=== PATIENT | male | born 1965 | race Caucasian/White ===

== ENCOUNTER 2016-03-25 21:13 | Emergency (ER) | payer OTHER ==
[~2016-03-25] VITALS: Ht 172.7 cm; Wt 80.0 kg
[~2016-03-25 21:13] MED LIST: CELE20TA PO; IPRAAER INH; LORA1TAB12 PO; OMEP20TA PO
[2016-03-25 21:20] VITALS: BP 127/85; PULSE 103; RESP 18; O2SAT 94
[2016-03-25 21:35] VITALS: O2SAT 96
--- NOTE | 2016-03-25 21:40 | PD ---
HPI Chief Complaint: respiratory complaint Time Seen by Provider: 21:32 Travel History International Travel<30 days: No Contact w/Intl Traveler<30days: No Traveled to known affect area: No History of Present Illness HPI 50-year-old male presents to the emergency department by EMS transport for evaluation of shortness of breath. Patient was identified to have wheezing and diminished breath sounds consistent with his history of COPD in exacerbation. Patient was given Solu-Medrol 105 mg IV along with 2 albuterol updraft treatments with improvement of symptoms. No report of injury or fall. EMS does report that part of her was attempting to place a CPAP mask and patient was fighting this and responded quickly to supplement oxygen and updraft treatments. Patient here is voicing no concerns or complaints other than shortness of breath prior to arrival to the emergency department. [facility] Past Medical History Narrative Medical Asthma; atrial fibrillation; bipolar/mood disorder; lung mass: status post biopsy negative for neoplasm or mycobacterium after review of multiple pathology reports from [facility] and the [facility]; COPD; alcoholism; hypertension; hepatitis C; alcohol withdrawal seizure; tobaccoism; orthopedic surgery left wrist; lung biopsy; tonsillectomy; nursing notes reviewed Hx Anticoagulant Therapy: No Arthritis: No Asthma: Yes Atrial Fibrillation: Yes Anxiety: Yes Depression: Yes Cancer: Yes (STAGE IV LUNG CA) Cardiac Catheterization: No Cardiovascular Problems: Yes (HTN) High Cholesterol: No Chemotherapy: No Chest Pain: Yes Congestive Heart Failure: No COPD: Yes Diabetes: No Diminished Hearing: No Endocrine: No Gastrointestinal Disorders: Yes (GERD) GERD: Yes Genitourinary: No Hepatitis: Yes (HEP C) Hiatal Hernia: No Hypertension: Yes Immune Disorder: No Implanted Vascular Access Dvce: Yes Neurologic: No Reproductive: No Respiratory: Yes Immunizations Current: Yes Radiation Therapy: No Seizures: Yes (ETOH WITHDRAWAL) Sleep Apnea: No Thyroid Disease: No Ulcer: Yes Past Surgical History Abdominal Surgery: No AICD: No Arteriovenous Shunt: No Body Medical Devices: SCREW IN LEFT WRIST Cardiac Surgery: No Ear Surgery: No Endocrine Surgery: No Eye Surgery: No Genitourinary Surgery: No Gynecologic Surgery: No Insulin Pump: No Joint Replacement: No Neurologic Surgery: No Oral Surgery: No Pacemaker: No Thoracic Surgery: Yes (BIOPSIES OF LT LUNG) Tonsillectomy: Yes Other Surgery: Yes Social History Alcohol Use: Yes ("MAYBE A 4 PACK OF BEER A DAY" ) Tobacco Use: Yes (3/4 PPD) Substance Use: No Allergies-Medications (Allergen,Severity, Reaction): Coded Allergies: Lisinopril (Verified Allergy, Severe, Anaphylaxis, 03/25/16) Penicillin (Verified Adverse Reaction, Severe, WEAKNESS, "KNOCKS ME OUT", 03/25/16) Reported Meds & Prescriptions Reported Meds & Active Scripts Active Combivent Respimat Inh (Ipratropium-Albuterol Inh) 20-100 Skilled Nursing/Act Aero 1 Puff INH QID Medrol Dosepak (Methylprednisolone) 4 Mg Dspk 4 Mg PO DIRECTED Per Pharmacist direction Reported Omeprazole 20 Mg Tab 20 Mg PO DAILY Lorazepam 1 Mg Tab 1 Mg PO HS PRN Combivent Respimat Inh (Ipratropium-Albuterol Inh) 20-100 Skilled Nursing/Act Aero 1 Puff INH QID Celexa (Citalopram Hydrobromide) 20 Mg Tab 20 Mg PO DAILY Review of Systems Except as stated in HPI: all other systems reviewed are Neg General / Constitutional: No: Fever, Chills HENT: No: Congestion Cardiovascular: No: Chest Pain or Discomfort Respiratory: Positive: Shortness of Breath Gastrointestinal: No: Abdominal Pain Genitourinary: No: Flank Pain Musculoskeletal: No: Myalgias, Arthralgias Skin: No Rash Neurologic: No: Weakness Psychiatric: No: Anxiety, Substance Abuse Hematologic/Lymphatic: No: Lymph Node Enlargement Physical Exam Narrative GENERAL: Well-developed well-nourished male in no acute distress no respiratory distress SKIN: Warm and dry. HEAD: Normocephalic. EYES: No scleral icterus. No injection or drainage. NECK: Supple, trachea midline. No JVD or lymphadenopathy. CARDIOVASCULAR: Regular rate and rhythm without murmurs, gallops, or rubs. RESPIRATORY: Breath sounds equal bilaterally. No accessory muscle use. GASTROINTESTINAL: Abdomen soft, non-tender, nondistended. MUSCULOSKELETAL: No cyanosis, or edema. BACK: Nontender without obvious deformity. No CVA tenderness. Data Data Last Documented VS Vital Signs Date Time Temp Pulse Resp B/P Pulse Ox O2 Delivery O2 Flow Rate FiO2 03/25/16 21:50 99 03/25/16 21:20 103 18 127/85 Orders Complete Blood Count With Diff (03/25/16 21:32) Comprehensive Metabolic Panel (03/25/16 21:32) Magnesium (Mg) (03/25/16 21:32) Troponin I (03/25/16 21:32) Urinalysis - C+S If Indicated (03/25/16 21:32) Iv Access Insert/Monitor (03/25/16 21:32) Electrocardiogram (03/25/16 21:32) Ecg Monitoring (03/25/16 21:32) Oximetry (03/25/16 21:32) Oxygen Administration (03/25/16 21:32) Chest, Single Ap (03/25/16 21:32) Sodium Chloride 0.9% Flush (Ns Flush) (03/25/16 21:45) Albuterol-Ipratropium Neb (Duoneb Neb) (03/25/16 21:45) Alcohol (Ethanol) (03/25/16 21:32) Ckmb (Isoenzyme) Profile (03/25/16 21:32) Potassium Chloride (Kcl) (03/25/16 22:15) CKMB (03/25/16 21:40) CKMB% (03/25/16 21:40) Labs Laboratory Tests Test 03/25/16 21:40 White Blood Count 6.5 TH/MM3 Red Blood Count 4.38 MIL/MM3 Hemoglobin 14.4 GM/DL Hematocrit 42.1 % Mean Corpuscular Volume 96.3 FL Mean Corpuscular Hemoglobin 32.9 PG Mean Corpuscular Hemoglobin 34.2 % Concent Red Cell Distribution Width 13.3 % Platelet Count 179 TH/MM3 Mean Platelet Volume 7.5 FL Neutrophils (%) (Auto) 28.1 % Lymphocytes (%) (Auto) 53.8 % Monocytes (%) (Auto) 16.1 % Eosinophils (%) (Auto) 1.0 % Basophils (%) (Auto) 1.0 % Neutrophils # (Auto) 1.8 TH/MM3 Lymphocytes # (Auto) 3.4 TH/MM3 Monocytes # (Auto) 1.1 TH/MM3 Eosinophils # (Auto) 0.1 TH/MM3 Basophils # (Auto) 0.1 TH/MM3 CBC Comment DIFF FINAL Differential Comment Urine Color STRAW Urine Turbidity CLEAR Urine pH 5.5 Urine Specific [place] 1.003 Urine Protein NEG mg/dL Urine Glucose (UA) NEG mg/dL Urine Ketones NEG mg/dL Urine Occult Blood NEG Urine Nitrite NEG Urine Bilirubin NEG Urine Leukocyte Esterase NEG Urine RBC 0-2 /hpf Urine WBC 0-2 /hpf Urine Squamous Epithelial 0-5 /hpf Cells Urine Bacteria NONE /hpf Microscopic Urinalysis Comment CULT NOT INDICATED Sodium Level 144 MEQ/L Potassium Level 3.3 MEQ/L Chloride Level 108 MEQ/L Carbon Dioxide Level 24.9 MEQ/L Anion Gap 11 MEQ/L Blood Urea Nitrogen 6 MG/DL Creatinine 0.92 MG/DL Estimat Glomerular Filtration 87 ML/MIN Rate Random Glucose 99 MG/DL Calcium Level 8.2 MG/DL Magnesium Level 2.3 MG/DL Total Bilirubin 0.3 MG/DL Aspartate Amino Transf 57 U/L (AST/SGOT) Alanine Aminotransferase 38 U/L (ALT/SGPT) Alkaline Phosphatase 64 U/L Total Creatine Kinase 587 U/L Creatine Kinase MB 2.7 NG/ML Creatine Kinase MB % 0.5 % Troponin I LESS THAN 0.02 NG/ML Total Protein 7.0 GM/DL Albumin 3.7 GM/DL Ethyl Alcohol Level 294 MG/DL [facility] Medical Decision Making Medical Screen Exam Complete: Yes Emergency Medical Condition: Yes Medical Record Reviewed: Yes Interpretation(s) EKG: Sinus tachycardia rate [address] elevation or injury pattern change or ectopy noted CXR: nad per Dr Gold Laboratory Tests Test 03/25/16 21:40 White Blood Count 6.5 TH/MM3 Red Blood Count 4.38 MIL/MM3 Hemoglobin 14.4 GM/DL Hematocrit 42.1 % Mean Corpuscular Volume 96.3 FL Mean Corpuscular Hemoglobin 32.9 PG Mean Corpuscular Hemoglobin 34.2 % Concent Red Cell Distribution Width 13.3 % Platelet Count 179 TH/MM3 Mean Platelet Volume 7.5 FL Neutrophils (%) (Auto) 28.1 % Lymphocytes (%) (Auto) 53.8 % Monocytes (%) (Auto) 16.1 % Eosinophils (%) (Auto) 1.0 % Basophils (%) (Auto) 1.0 % Neutrophils # (Auto) 1.8 TH/MM3 Lymphocytes # (Auto) 3.4 TH/MM3 Monocytes # (Auto) 1.1 TH/MM3 Eosinophils # (Auto) 0.1 TH/MM3 Basophils # (Auto) 0.1 TH/MM3 CBC Comment DIFF FINAL Differential Comment Urine Color STRAW Urine Turbidity CLEAR Urine pH 5.5 Urine Specific [place] 1.003 Urine Protein NEG mg/dL Urine Glucose (UA) NEG mg/dL Urine Ketones NEG mg/dL Urine Occult Blood NEG Urine Nitrite NEG Urine Bilirubin NEG Urine Leukocyte Esterase NEG Urine RBC 0-2 /hpf Urine WBC 0-2 /hpf Urine Squamous Epithelial 0-5 /hpf Cells Urine Bacteria NONE /hpf Microscopic Urinalysis Comment CULT NOT INDICATED Sodium Level 144 MEQ/L Potassium Level 3.3 MEQ/L Chloride Level 108 MEQ/L Carbon Dioxide Level 24.9 MEQ/L Anion Gap 11 MEQ/L Blood Urea Nitrogen 6 MG/DL Creatinine 0.92 MG/DL Estimat Glomerular Filtration 87 ML/MIN Rate Random Glucose 99 MG/DL Calcium Level 8.2 MG/DL Magnesium Level 2.3 MG/DL Total Bilirubin 0.3 MG/DL Aspartate Amino Transf 57 U/L (AST/SGOT) Alanine Aminotransferase 38 U/L (ALT/SGPT) Alkaline Phosphatase 64 U/L Total Creatine Kinase 587 U/L Creatine Kinase MB 2.7 NG/ML Creatine Kinase MB % 0.5 % Troponin I LESS THAN 0.02 NG/ML Total Protein 7.0 GM/DL Albumin 3.7 GM/DL Ethyl Alcohol Level 294 MG/DL Differential Diagnosis Dyspnea, exacerbation COPD, pneumonia, PE, ACS, CHF, alcohol intoxication, electrolyte disturbance, arrhythmia, anemia Narrative Course Patient placed on spinner operator IV access obtained specimens collected and sent for resulting patient administered [facility] 2 had artery received albuterol nebulized treatments 2 prior to arrival to the emergency department along with Solu-Medrol 125 mg IV At 10:25 PM patient is clinically improved lung sounds are clear patient is talking animatedly on the telephone and appears to be in no residual respiratory distress. Patient denying any shortness of breath. Patient is identified to have mild hypokalemia. Patient is identified to have elevated serum alcohol of 294 consistent with intoxication however patient is most likely near his baseline as she admits to being an alcoholic. Patient is noted to have mild lymphocytosis by CBC and patient has chronically elevated lymphocyte percent by automated differential. Patient is identified to have an EKG injury pattern change troponin I is less than 0.02 and not elevated however total CK is elevated at 587 this is nonspecific as CK-MB is 2.7 not elevated and CK-MB percent is 0.5% not elevated most likely reflecting skeletal muscle elevation. Patient has called his son to accept responsibility for patient at time of discharge. Diagnosis Primary Impression: COPD (chronic obstructive pulmonary disease) Qualified Code: J44.9 - Chronic obstructive pulmonary disease, unspecified COPD type Additional Impressions: Alcohol dependence with acute alcoholic intoxication Qualified Code: F10.220 - Alcohol dependence with acute alcoholic intoxication , uncomplicated Hypokalemia Increased CPK level Medication refill Tobacco use disorder Referrals: Primary Care Physician call for appointment [facility] day Patient Instructions: General Instructions Additional Instructions: Increase fluid hydration with NON-alcoholic beverages Add potassium containing foods and beverages to dietary intake Use inhaler as prescribed as needed Discontinue tobacco use Complete Medrol dose taper Discontinue alcohol use follow-up with [facility] for outpatient and inpatient detox resources Follow-up with primary care provider Return to the emergency department for any concerns or change in condition Med/Other Pt SpecificInfo: Prescription(s) given Scripts Ipratropium-Albuterol Inh (Combivent Respimat Inh)20-100 Skilled Nursing/Act Aero1 Puff INH QID #1 INHALER Ref 0 Prov:Tina De Paz MD 03/25/16 Methylprednisolone Dosepak (Medrol Dosepak)4 Mg Dspk4 Mg PO DIRECTED #1 DSPK Ref 0 Per Pharmacist direction Prov:Tina De Paz MD 03/25/16 Disposition: 01 DISCHARGE HOME Condition: Stable Tina De Paz MD Mar 25, 2016 21:40
[2016-03-25] MEDS ORDERED: SODIUM CHLORIDE 0.9% FLUSH 5 ML FLUSH IVF PRN (21:45)
[2016-03-25] MEDS: RESP: ALBUTEROL 2.5 MG/IPRATROPIUM 0.5 MG NEB (SCH) INH (21:49)
[2016-03-25 21:50] VITALS: O2SAT 99
[2016-03-25 21:52] LABS: BLOOD, URINE NEG (NEG); GLUCOSE,URINE NEG (NEG); KETONE, URINE NEG (NEG); NITRITE,URINE NEG (NEG); PH, URINE 5.5 (5.0-8.5)
[2016-03-25 21:54] LABS: AUTOMATED NEUTROPHIL # 1.8 TH/MM3 (1.8-7.7); BASOPHIL # 0.1 TH/MM3 (0-0.2); EOSINOPHIL # 0.1 TH/MM3 (0-0.4); HEMATOCRIT 42.1 % (39.0-51.0); HEMO FLAGS DIFF FINAL; LYMPH % 53.8 % (9.0-44.0); LYMPHOCYTE # 3.4 TH/MM3 (1.0-4.8); MEAN CELL VOLUME 96.3 FL (80.0-100.0); MEAN CORPUSCULAR HEMOGLOBIN 32.9 PG (27.0-34.0); MEAN CORPUSCULAR HGB CONC 34.2 % (32.0-36.0); MONO % 16.1 % (0.0-8.0); NEUT % 28.1 % (16.0-70.0); PLATELET COUNT 179 TH/MM3 (150-450); RED BLOOD COUNT 4.38 MIL/MM3 (4.50-5.90); RED CELL DISTRIBUTION WIDTH 13.3 % (11.6-17.2); WHITE BLOOD COUNT 6.5 TH/MM3 (4.0-11.0)
[2016-03-25 21:59] LABS: CHLORIDE 108 MEQ/L (98-107); POTASSIUM 3.3 MEQ/L (3.5-5.1); SODIUM (NA) 144 MEQ/L (136-145)
[2016-03-25 22:01] LABS: RBC, URINE 0-2 /hpf (0-3); SQUAMOUS EPITHELIAL CELL URINE 0-5 /hpf (0-5); URINE COLOR STRAW (YELLW/STRAW); WBC, URINE 0-2 /hpf (0-5)
[2016-03-25 22:02] LABS: COMMENT (UR) CULT NOT INDICATED; CULTURE IF INDICATED CULT NOT INDICATED
[2016-03-25 22:03] LABS: ANION GAP 11 MEQ/L (5-15); BICARBONATE 24.9 MEQ/L (21.0-32.0); BLOOD UREA NITROGEN 6 MG/DL (7-18); MAGNESIUM 2.3 MG/DL (1.5-2.5)
[2016-03-25 22:06] LABS: ALT (GPT) 38 U/L (12-78); AST (GOT) 57 U/L (15-37); GLOMERULAR FILTRATION RATE 87 ML/MIN (>89)
[2016-03-25 22:08] LABS: TOTAL BILIRUBIN ADULT 0.3 MG/DL (0.2-1.0)
[2016-03-25 22:09] LABS: ALKALINE PHOSPHATASE 64 U/L (45-117); CREATINE KINASE 587 U/L (39-308)
--- NOTE | 2016-03-25 22:12 | RADHPO ---
EXAM DATE/TIME: 03/25/2016 21:59 [facility] COMPARISON: CHEST SINGLE AP, December 12, 2015, 18:52. INDICATIONS : Shortness of breath starting today MEDICAL HISTORY : Chronic obstructive pulmonary disease. Carcinoma, lung. SURGICAL HISTORY : None. ENCOUNTER: Initial ACUITY: 1 day PAIN SCORE: 0/10 LOCATION: Bilateral chest FINDINGS: A single view of the chest demonstrates the lungs to be symmetrically aerated without evidence of mas s, infiltrate or effusion. The cardiomediastinal contours are unremarkable. Osseous structures are intact. CONCLUSION: No acute disease. Alexander Gold MD on March 25, 2016 at 22:10 Board Certified Radiologist. This report was verified electronically.
[2016-03-25 22:15] VITALS: BP 117/68; PULSE 100; RESP 20; O2SAT 94
[2016-03-25] MEDS ORDERED: POTASSIUM CHLORIDE 20 MEQ CONTROLLED RELEASE TAB PO ONE (22:15)
[2016-03-25 22:21] LABS: CKMB 2.7 NG/ML (0.5-3.6)
[2016-03-25] MEDS ORDERED: IPRAAER INH (22:35)
[2016-03-25] MEDS ORDERED: MEDR4PAK PO (22:35)
[2016-03-25 23:20] VITALS: BP 119/75
--- NOTE | 2016-03-26 21:04 | EKG ---
Date Performed: 03/25/2016 Time Performed: 21:44:06 PTAGE: 50 years EKG: Sinus tachycardia Normal ECG except for rate PREVIOUS TRACING : 12/12/2015 18.43 DOCTOR: Mumtaz Pelletier Interpretating Date/Time 03/26/2016 21:01:36
== END 2016-03-25 23:24 | disposition home or self-care (01) ==
LOC: PHED 21:13
DX: J44.1 Chronic obstructive pulmonary disease with (acute) exacerbation (principal); F10.220 Alcohol dependence with intoxication, uncomplicated; I48.91 Unspecified atrial fibrillation; F31.9 Bipolar disorder, unspecified; R91.8 Other nonspecific abnormal finding of lung field; B19.20 Unspecified viral hepatitis C without hepatic coma; J45.909 Unspecified asthma, uncomplicated; I10 Essential (primary) hypertension; F17.210 Nicotine dependence, cigarettes, uncomplicated; R00.0 Tachycardia, unspecified; E87.6 Hypokalemia; Y90.8 Blood alcohol level of 240 mg/100 ml or more; R94.4 Abnormal results of kidney function studies
CPT/HCPCS: 71010; 80053; 80320; 81001; 82550; 82552; 83735; 84484; 85025; 93005; 94640; 94664

== ENCOUNTER 2016-04-01 19:37 | Emergency (ER) | payer OTHER ==
[~2016-04-01] VITALS: Ht 182.9 cm; Wt 76.0 kg
[~2016-04-01 19:37] MED LIST changes: +MEDR4PAK PO
[2016-04-01 20:00] VITALS: BP 122/76; PULSE 95; RESP 18; O2SAT 95
[2016-04-01] MEDS ORDERED: ONDANSETRON HCL 4 MG/2 ML VIAL IV ONE (20:00)
[2016-04-01] MEDS ORDERED: methylPREDNISolone SOD SUCC 125 MG/2 ML VIAL IVP ONE (20:00)
[2016-04-01 20:01] VITALS: BP 122/76; PULSE 99; RESP 16; TEMP 98.5; O2SAT 98
--- NOTE | 2016-04-01 20:01 | PD ---
HPI Chief Complaint: Respiratory Symptoms Time Seen by Provider: 19:47 Travel History International Travel<30 days: No Contact w/Intl Traveler<30days: No Traveled to known affect area: No History of Present Illness HPI The patient is a 50-year-old male who is well-known to this emergency department regarding his frequent visits for alcohol abuse. He called the ambulance today because he was short of breath. The patient continues to smoke one half pack a day and he has COPD. He denies any fever. He denies any chest pain. He has a nebulizer machine at home but did not use it today. PFSH Past Medical History Hx Anticoagulant Therapy: No Arthritis: No Asthma: Yes Atrial Fibrillation: Yes Anxiety: Yes Depression: Yes Cancer: No (STAGE IV LUNG CA) Cardiac Catheterization: No Cardiovascular Problems: Yes (HTN) High Cholesterol: No Chemotherapy: No Chest Pain: Yes Congestive Heart Failure: No COPD: Yes Diabetes: No Diminished Hearing: No Endocrine: No Gastrointestinal Disorders: Yes (GERD) GERD: Yes Genitourinary: No Hepatitis: Yes (HEP C) Hiatal Hernia: No Hypertension: Yes Immune Disorder: No Implanted Vascular Access Dvce: Yes Neurologic: No Reproductive: No Respiratory: Yes Immunizations Current: Yes Radiation Therapy: No Seizures: Yes (ETOH WITHDRAWAL) Sleep Apnea: No Thyroid Disease: No Ulcer: Yes Past Surgical History Abdominal Surgery: No AICD: No Arteriovenous Shunt: No Body Medical Devices: SCREW IN LEFT WRIST Cardiac Surgery: No Ear Surgery: No Endocrine Surgery: No Eye Surgery: No Genitourinary Surgery: No Gynecologic Surgery: No Insulin Pump: No Joint Replacement: No Neurologic Surgery: No Oral Surgery: No Pacemaker: No Thoracic Surgery: Yes (BIOPSIES OF LT LUNG) Tonsillectomy: Yes Other Surgery: Yes Social History Alcohol Use: Yes ("MAYBE A 4 PACK OF BEER A DAY" ) Tobacco Use: Yes (3/4 PPD) Substance Use: No Allergies-Medications (Allergen,Severity, Reaction): Coded Allergies: Lisinopril (Verified Allergy, Severe, Anaphylaxis, 04/01/16) Penicillin (Verified Adverse Reaction, Severe, WEAKNESS, "KNOCKS ME OUT", 04/01/16) Reported Meds & Prescriptions Reported Meds & Active Scripts Active Combivent Respimat Inh (Ipratropium-Albuterol Inh) 20-100 Care Home/Act Aero 1 Puff INH QID Medrol Dosepak (Methylprednisolone) 4 Mg Dspk 4 Mg PO DIRECTED Per Pharmacist direction Reported Omeprazole 20 Mg Tab 20 Mg PO DAILY Lorazepam 1 Mg Tab 1 Mg PO HS PRN Combivent Respimat Inh (Ipratropium-Albuterol Inh) 20-100 Care Home/Act Aero 1 Puff INH QID Celexa (Citalopram Hydrobromide) 20 Mg Tab 20 Mg PO DAILY Review of Systems ROS Limitations: Intoxication Except as stated in HPI: all other systems reviewed are Neg Physical Exam Exam Limitations: Intoxication Narrative GENERAL: The patient is alert, oriented 3, alcohol intoxicated appearing and smelling of beer in slight respiratory distress. SKIN: Warm and dry. No needle tracks are seen. HEAD: Atraumatic. Normocephalic. EYES: Pupils equal and round. No scleral icterus. No injection or drainage. ENT: No nasal bleeding or discharge. Mucous membranes pink and moist. NECK: Trachea midline. No JVD. CARDIOVASCULAR: Regular rate and rhythm. No murmur appreciated. RESPIRATORY: No accessory muscle use. The lungs show scattered wheezes bilaterally consistent with his heavy smoking. Breath sounds equal bilaterally. GASTROINTESTINAL: Abdomen soft, non-tender, nondistended. Hepatic and splenic margins not palpable. MUSCULOSKELETAL: No obvious deformities. No clubbing. No cyanosis. No edema. NEUROLOGICAL: Awake and alert. No obvious cranial nerve deficits. Motor grossly within normal limits. Slightly slurred speech consistent with alcohol intoxication. PSYCHIATRIC: The patient appears to have alcohol intoxication and is judgment is fair. He does not appear depressed. Data Data Last Documented VS Vital Signs Date Time Temp Pulse Resp B/P Pulse Ox O2 Delivery O2 Flow Rate FiO2 04/01/16 20:01 98.5 99 16 122/76 98 04/01/16 19:55 Room Air Orders Complete Blood Count With Diff (04/01/16 19:47) Comprehensive Metabolic Panel (04/01/16 19:47) Lipase (04/01/16 19:47) Urinalysis - C+S If Indicated (04/01/16 19:47) Magnesium (Mg) (04/01/16 19:47) Alcohol (Ethanol) (04/01/16 19:47) Drug Screen, Random Urine (04/01/16 19:47) Ondansetron Inj (Zofran Inj) (04/01/16 20:00) Sodium Chlor 0.9% 1000 Ml Inj (Ns 1000 M (04/01/16 20:00) Chest, Pa & Lat (04/01/16 19:55) Methylprednisolone So Succ Inj (Solumedr (04/01/16 20:00) Albuterol-Ipratropium Neb (Duoneb Neb) (04/01/16 20:00) Labs Laboratory Tests Test 04/01/16 04/01/16 19:50 20:00 Urine Collection Type VOIDED Urine Color NONE Urine Turbidity CLEAR Urine pH 5.5 Urine Specific [place] 1.004 Urine Protein NEG mg/dL Urine Glucose (UA) NEG mg/dL Urine Ketones NEG mg/dL Urine Occult Blood NEG Urine Nitrite NEG Urine Bilirubin NEG Urine Leukocyte Esterase NEG Microscopic Urinalysis Comment CULT NOT INDICATED Urine Opiates Screen NEG Urine Barbiturates Screen NEG Urine Amphetamines Screen NEG Urine Benzodiazepines Screen NEG Urine Cocaine Screen NEG Urine Cannabinoids Screen NEG White Blood Count 5.3 TH/MM3 Red Blood Count 4.47 MIL/MM3 Hemoglobin 14.9 GM/DL Hematocrit 42.6 % Mean Corpuscular Volume 95.5 FL Mean Corpuscular Hemoglobin 33.4 PG Mean Corpuscular Hemoglobin 35.0 % Concent Red Cell Distribution Width 13.1 % Platelet Count 148 TH/MM3 Mean Platelet Volume 7.5 FL Neutrophils (%) (Auto) 32.8 % Lymphocytes (%) (Auto) 49.9 % Monocytes (%) (Auto) 14.1 % Eosinophils (%) (Auto) 1.8 % Basophils (%) (Auto) 1.4 % Neutrophils # (Auto) 1.7 TH/MM3 Lymphocytes # (Auto) 2.7 TH/MM3 Monocytes # (Auto) 0.7 TH/MM3 Eosinophils # (Auto) 0.1 TH/MM3 Basophils # (Auto) 0.1 TH/MM3 CBC Comment DIFF FINAL Differential Comment Sodium Level 137 MEQ/L Potassium Level 3.5 MEQ/L Chloride Level 102 MEQ/L Carbon Dioxide Level 23.6 MEQ/L Anion Gap 11 MEQ/L Blood Urea Nitrogen 7 MG/DL Creatinine 0.86 MG/DL Estimat Glomerular Filtration 94 ML/MIN Rate Random Glucose 88 MG/DL Calcium Level 8.7 MG/DL Magnesium Level 2.2 MG/DL Total Bilirubin 0.5 MG/DL Aspartate Amino Transf 42 U/L (AST/SGOT) Alanine Aminotransferase 40 U/L (ALT/SGPT) Alkaline Phosphatase 72 U/L Total Protein 7.1 GM/DL Albumin 3.6 GM/DL Lipase 493 U/L Ethyl Alcohol Level 313 MG/DL [facility] Medical Decision Making Medical Screen Exam Complete: Yes Emergency Medical Condition: Yes Medical Record Reviewed: Yes Interpretation(s) The CBC is essentially normal. The complete metabolic profile shows an AST of 42 but is otherwise normal. Lipase is slightly elevated at 493. The urine toxicology screen is negative for all substances tested in the urine. The alcohol level is 313. The chest x-ray shows no acute cardiopulmonary disease. Differential Diagnosis Alcohol intoxication, alcohol abuse, other substance abuse, COPD with acute exacerbation, bronchitis, pneumonia Narrative Course The patient was given 3 DuoNeb treatments and feels much better and wants to go home. The patient has been walking around the emergency department fairly normally despite his elevated alcohol level. He says he lives down the street and can walk to his house. He is told to discontinue alcohol. Impression, COPD with acute exacerbation, alcohol abuse. Plan: The patient wants an albuterol HFA refill. He will need to discontinue alcohol. Diagnosis Primary Impression: COPD with acute exacerbation Additional Instructions: As we discussed, discontinue alcohol. Your alcohol level was extremely high today. Med/Other Pt SpecificInfo: Prescription(s) given Scripts Albuterol 8.5 GM Inh (Proair Hfa 8.5 GM Inh)90 Mcg/Act Aer2 Puff INH Q4-6H PRN ( SHORTNESS OF BREATH) #1 INHALER Ref 0 108 mcg/actuation Prov:Macho Palafox MD 04/01/16 Disposition: 01 DISCHARGE HOME Condition: Stable Macho Palafox MD Apr 01, 2016 20:01
[2016-04-01] MEDS: RESP: ALBUTEROL 2.5 MG/IPRATROPIUM 0.5 MG NEB (SCH) INH ×2 (20:05→20:08)
[2016-04-01 20:10] LABS: AUTOMATED NEUTROPHIL # 1.7 TH/MM3 (1.8-7.7); BASOPHIL # 0.1 TH/MM3 (0-0.2); BASOPHIL % 1.4 % (0.0-2.0); EOSINOPHIL # 0.1 TH/MM3 (0-0.4); EOSINOPHIL % 1.8 % (0.0-4.0); HEMATOCRIT 42.6 % (39.0-51.0); HEMO FLAGS DIFF FINAL; LYMPH % 49.9 % (9.0-44.0); LYMPHOCYTE # 2.7 TH/MM3 (1.0-4.8); MEAN CELL VOLUME 95.5 FL (80.0-100.0); MEAN CORPUSCULAR HEMOGLOBIN 33.4 PG (27.0-34.0); MONO % 14.1 % (0.0-8.0); NEUT % 32.8 % (16.0-70.0); PLATELET COUNT 148 TH/MM3 (150-450); RED BLOOD COUNT 4.47 MIL/MM3 (4.50-5.90); RED CELL DISTRIBUTION WIDTH 13.1 % (11.6-17.2); WHITE BLOOD COUNT 5.3 TH/MM3 (4.0-11.0)
[2016-04-01 20:13] LABS: BLOOD, URINE NEG (NEG); GLUCOSE,URINE NEG (NEG); KETONE, URINE NEG (NEG); NITRITE,URINE NEG (NEG); PH, URINE 5.5 (5.0-8.5)
[2016-04-01 20:17] LABS: AMPHETAMINE, URINE NEG (NEG); BARBITURATES, URINE NEG (NEG)
[2016-04-01 20:18] LABS: COCAINE, URINE NEG (NEG)
[2016-04-01 20:18] LABS: CHLORIDE 102 MEQ/L (98-107); POTASSIUM 3.5 MEQ/L (3.5-5.1); SODIUM (NA) 137 MEQ/L (136-145)
[2016-04-01] MEDS: SODIUM CHLOR 0.9% 1000 ML INJ 1,000 ML IV SCH ×2 (20:18→21:01)
[2016-04-01 20:23] LABS: ANION GAP 11 MEQ/L (5-15); BICARBONATE 23.6 MEQ/L (21.0-32.0); BLOOD UREA NITROGEN 7 MG/DL (7-18); MAGNESIUM 2.2 MG/DL (1.5-2.5)
[2016-04-01 20:25] LABS: ALT (GPT) 40 U/L (12-78); AST (GOT) 42 U/L (15-37)
[2016-04-01 20:26] LABS: GLOMERULAR FILTRATION RATE 94 ML/MIN (>89)
[2016-04-01 20:27] LABS: TOTAL BILIRUBIN ADULT 0.5 MG/DL (0.2-1.0)
[2016-04-01 20:28] LABS: ALKALINE PHOSPHATASE 72 U/L (45-117)
[2016-04-01 20:35] LABS: COMMENT (UR) CULT NOT INDICATED; CULTURE IF INDICATED CULT NOT INDICATED; METHOD OF COLLECTION VOIDED
[2016-04-01 20:50] VITALS: BP 128/77; PULSE 94; RESP 18; O2SAT 95
--- NOTE | 2016-04-01 20:55 | RADHPO ---
EXAM DATE/TIME: 04/01/2016 20:45 [facility] COMPARISON: CHEST SINGLE AP, March 25, 2016, 21:59. CHEST PA & LAT, September 01, 2015, 21:59. INDICATIONS : Shortness of breath, cough, chest pain for 1 week MEDICAL HISTORY : Chronic obstructive pulmonary disease. Carcinoma, lung. SURGICAL HISTORY : None. ENCOUNTER: Initial ACUITY: 1 week PAIN SCORE: 10/10 LOCATION: Bilateral chest FINDINGS: PA and lateral views of the chest demonstrate the lungs to be symmetrically aerated without evidence of mass, infiltrate or effusion. Stable scarring is again noted in the left upper lobe. The cardiome diastinal contours are unremarkable. Osseous structures are intact. CONCLUSION: No acute disease. Darwin Treadwell MD on April 01, 2016 at 20:52 Board Certified Radiologist. This report was verified electronically.
[2016-04-01] MEDS ORDERED: ALBUAER3 INH (22:31)
[2016-04-01 22:38] VITALS: BP 137/89; PULSE 95; RESP 18
== END 2016-04-01 22:48 | disposition home or self-care (01) ==
LOC: PHED 19:37
DX: J44.9 Chronic obstructive pulmonary disease, unspecified (principal); I48.91 Unspecified atrial fibrillation; F41.8 Other specified anxiety disorders; I10 Essential (primary) hypertension; F10.220 Alcohol dependence with intoxication, uncomplicated; Y90.8 Blood alcohol level of 240 mg/100 ml or more; F17.210 Nicotine dependence, cigarettes, uncomplicated; B19.20 Unspecified viral hepatitis C without hepatic coma; K21.9 Gastro-esophageal reflux disease without esophagitis
CPT/HCPCS: 71020; 80053; 80307; 80320; 81001; 83690; 83735; 85025; 94640; 94664; 96361; 96374; 96375; 99285; J2405; J2930; J7030

== ENCOUNTER 2016-04-29 20:25 | Emergency (ER) | payer OTHER ==
[~2016-04-29] VITALS: Ht 182.9 cm; Wt 75.0 kg
[~2016-04-29 20:25] MED LIST changes: +ALBUAER3 INH
[2016-04-29 20:29] VITALS: BP 139/95; PULSE 90; RESP 22; TEMP 98; O2SAT 99
[2016-04-29] MEDS ORDERED: methylPREDNISolone SOD SUCC 125 MG/2 ML VIAL IVP ONE (20:45)
[2016-04-29] MEDS ORDERED: SODIUM CHLORIDE 0.9% FLUSH 5 ML FLUSH IVF PRN (20:45)
--- NOTE | 2016-04-29 20:45 | PD ---
HPI Chief Complaint: Respiratory Symptoms Time Seen by Provider: 20:37 Travel History International Travel<30 days: No Contact w/Intl Traveler<30days: No Traveled to known affect area: No History of Present Illness HPI The patient is a 50-year-old alcoholic, frequent visitor to this emergency department for alcohol abuse and COPD with acute exacerbation and complains of shortness of breath/wheezing. He denies any fever. He has a nebulizer machine at home and used it about one hour ago. He admits to "drinking only beer" this afternoon. He smokes about one half pack a day. The patient is requesting Dilaudid for his chronic chest pain. His chest pain is sharp and pleuritic. The patient called an ambulance today and states he is out of his nebulizer treatments. PFSH Past Medical History Hx Anticoagulant Therapy: No Arthritis: No Asthma: Yes Atrial Fibrillation: Yes Anxiety: Yes Depression: Yes Cancer: No (STAGE IV LUNG CA) Cardiac Catheterization: No Cardiovascular Problems: Yes (HTN) High Cholesterol: No Chemotherapy: No Chest Pain: Yes Congestive Heart Failure: No COPD: Yes Diabetes: No Diminished Hearing: No Endocrine: No Gastrointestinal Disorders: Yes (GERD) GERD: Yes Genitourinary: No Hepatitis: Yes (HEP C) Hiatal Hernia: No Hypertension: Yes Immune Disorder: No Implanted Vascular Access Dvce: Yes Neurologic: No Reproductive: No Respiratory: Yes (STAGE 4 LUNG CA) Immunizations Current: Yes Radiation Therapy: No Seizures: Yes (ETOH WITHDRAWAL) Sleep Apnea: No Thyroid Disease: No Ulcer: Yes Past Surgical History Abdominal Surgery: No AICD: No Arteriovenous Shunt: No Body Medical Devices: SCREW IN LEFT WRIST Cardiac Surgery: No Ear Surgery: No Endocrine Surgery: No Eye Surgery: No Genitourinary Surgery: No Gynecologic Surgery: No Insulin Pump: No Joint Replacement: No Neurologic Surgery: No Oral Surgery: No Pacemaker: No Thoracic Surgery: Yes (BIOPSIES OF LT LUNG) Tonsillectomy: Yes Other Surgery: Yes Social History Alcohol Use: Yes ("MAYBE A 4 PACK OF BEER A DAY", unspecified amount of beer today (04/01/16)) Tobacco Use: Yes (/ PPD) Substance Use: No Allergies-Medications (Allergen,Severity, Reaction): Coded Allergies: Lisinopril (Verified Allergy, Severe, Anaphylaxis, 04/29/16) Penicillin (Verified Adverse Reaction, Severe, WEAKNESS, "KNOCKS ME OUT", 04/29/16) Reported Meds & Prescriptions Reported Meds & Active Scripts Active Albuterol Neb (Albuterol Sulfate) 2.5 Mg/3 Ml Neb 2.5 Mg NEB QID NEB Proair Hfa 8.5 GM Inh (Albuterol Sulfate) 90 Mcg/Act Aer 2 Puff INH Q4-6H PRN 108 mcg/actuation Proair Hfa 8.5 GM Inh (Albuterol Sulfate) 90 Mcg/Act Aer 2 Puff INH Q4-6H PRN 108 mcg/actuation Reported Omeprazole 20 Mg Tab 20 Mg PO DAILY Lorazepam 1 Mg Tab 1 Mg PO HS PRN Combivent Respimat Inh (Ipratropium-Albuterol Inh) 20-100 Custodial/Act Aero 1 Puff INH QID Celexa (Citalopram Hydrobromide) 20 Mg Tab 20 Mg PO DAILY Review of Systems ROS Limitations: Intoxication Except as stated in HPI: all other systems reviewed are Neg Physical Exam Exam Limitations: Intoxication Narrative GENERAL: The patient is alert, oriented 3 in slight respiratory distress. He does smell of beer. His vital signs show blood pressure 139/95 and respiratory rate of 22 but his oximetry is 99% on room air. When I see the patient is respiratory rate is 18. SKIN: Warm and dry. HEAD: Atraumatic. Normocephalic. EYES: Pupils equal and round. No scleral icterus. No injection or drainage. ENT: No nasal bleeding or discharge. Mucous membranes pink and moist. NECK: Trachea midline. No JVD. CARDIOVASCULAR: Regular rate and rhythm. No murmur appreciated. RESPIRATORY: No accessory muscle use. Scattered wheezes are heard bilaterally in all lung joseph. Breath sounds equal bilaterally. GASTROINTESTINAL: Abdomen soft, non-tender, nondistended. Hepatic and splenic margins not palpable. No guarding or rebound is present. MUSCULOSKELETAL: No obvious deformities. No clubbing. No cyanosis. No edema. NEUROLOGICAL: Awake and alert. No obvious cranial nerve deficits. Motor grossly within normal limits. Normal speech. PSYCHIATRIC: The patient appears slightly alcohol intoxicated, his judgment is fair. Data Data Last Documented VS Vital Signs Date Time Temp Pulse Resp B/P Pulse Ox O2 Delivery O2 Flow Rate FiO2 04/29/16 21:13 98 Aerosol Mask 7 21 04/29/16 20:29 98.0 90 22 139/95 Orders Complete Blood Count With Diff (04/29/16 20:41) Comprehensive Metabolic Panel (04/29/16 20:41) Magnesium (Mg) (04/29/16 20:41) Troponin I (04/29/16 20:41) Influenzae A/B Antigen (04/29/16 20:41) Iv Access Insert/Monitor (04/29/16 20:41) Electrocardiogram (04/29/16 20:41) Ecg Monitoring (04/29/16 20:41) Oximetry (04/29/16 20:41) Oxygen Administration (04/29/16 20:41) Chest, Pa & Lat (04/29/16 20:41) Sodium Chloride 0.9% Flush (Ns Flush) (04/29/16 20:45) Methylprednisolone So Succ Inj (Solumedr (04/29/16 20:45) Albuterol-Ipratropium Neb (Duoneb Neb) (04/29/16 20:45) Alcohol (Ethanol) (04/29/16 20:41) Ckmb (Isoenzyme) Profile (04/29/16 20:55) CKMB (04/29/16 20:55) CKMB% (04/29/16 20:55) Labs Laboratory Tests Test 04/29/16 20:55 White Blood Count 5.6 TH/MM3 Red Blood Count 4.56 MIL/MM3 Hemoglobin 15.1 GM/DL Hematocrit 43.5 % Mean Corpuscular Volume 95.4 FL Mean Corpuscular Hemoglobin 33.0 PG Mean Corpuscular Hemoglobin 34.6 % Concent Red Cell Distribution Width 13.3 % Platelet Count 153 TH/MM3 Mean Platelet Volume 7.7 FL Neutrophils (%) (Auto) 44.0 % Lymphocytes (%) (Auto) 37.3 % Monocytes (%) (Auto) 15.1 % Eosinophils (%) (Auto) 1.4 % Basophils (%) (Auto) 2.2 % Neutrophils # (Auto) 2.5 TH/MM3 Lymphocytes # (Auto) 2.1 TH/MM3 Monocytes # (Auto) 0.8 TH/MM3 Eosinophils # (Auto) 0.1 TH/MM3 Basophils # (Auto) 0.1 TH/MM3 CBC Comment DIFF FINAL Differential Comment Sodium Level 142 MEQ/L Potassium Level 3.8 MEQ/L Chloride Level 104 MEQ/L Carbon Dioxide Level 24.4 MEQ/L Anion Gap 14 MEQ/L Blood Urea Nitrogen 7 MG/DL Creatinine 0.81 MG/DL Estimat Glomerular Filtration 100 ML/MIN Rate Random Glucose 88 MG/DL Calcium Level 8.9 MG/DL Magnesium Level 2.4 MG/DL Total Bilirubin 0.4 MG/DL Aspartate Amino Transf 79 U/L (AST/SGOT) Alanine Aminotransferase 60 U/L (ALT/SGPT) Alkaline Phosphatase 71 U/L Total Creatine Kinase 167 U/L Troponin I LESS THAN 0.02 NG/ML Total Protein 7.3 GM/DL Albumin 3.9 GM/DL Ethyl Alcohol Level 274 MG/DL [facility] Medical Decision Making Medical Screen Exam Complete: Yes Emergency Medical Condition: Yes Medical Record Reviewed: Yes Interpretation(s) Except for an AST of 79, the complete metabolic profile is normal. The cardiac enzymes are normal. The influenza A/B antigen is negative for flu a and flu B antigen. The alcohol level is 274. Differential Diagnosis Alcohol intoxication, alcohol abuse, COPD with acute exacerbation, hypoxemia, pneumonia, bronchitis, out of medicationsnoncompliant to physician follow-up Narrative Course The patient has alcohol abuse and COPD with acute exacerbation. He appears to be drug-seeking as well, he likes Dilaudid. He has chronic chest pain. He is noncompliant and following up with his primary care physician. Diagnosis Primary Impression: AA (alcohol abuse) Additional Impressions: COPD with acute exacerbation Chronic chest wall pain Drug-seeking behavior Additional Instructions: I refilled your nebulizer medications and albuterol HFA. Discontinue alcohol and smoking. Follow up with a primary care physician. Med/Other Pt SpecificInfo: No Change to Meds Scripts Albuterol Neb 2.5 Mg/3 Ml Neb2.5 Mg NEB QID NEB #60 NEBULE Ref 0 Prov:Macho Palafox MD 04/29/16 Albuterol 8.5 GM Inh (Proair Hfa 8.5 GM Inh)90 Mcg/Act Aer2 Puff INH Q4-6H PRN ( SHORTNESS OF BREATH) #1 INHALER Ref 0 108 mcg/actuation Prov:Macho Palafox MD 04/29/16 Disposition: 01 DISCHARGE HOME Condition: Stable Macho Palafox MD Apr 29, 2016 20:45
[2016-04-29] MEDS: RESP: ALBUTEROL 2.5 MG/IPRATROPIUM 0.5 MG NEB (SCH) INH (20:55)
[2016-04-29 20:56] VITALS: O2SAT 98
[2016-04-29 21:13] VITALS: O2SAT 98
[2016-04-29 21:14] LABS: AUTOMATED NEUTROPHIL # 2.5 TH/MM3 (1.8-7.7); BASOPHIL # 0.1 TH/MM3 (0-0.2); BASOPHIL % 2.2 % (0.0-2.0); EOSINOPHIL # 0.1 TH/MM3 (0-0.4); EOSINOPHIL % 1.4 % (0.0-4.0); HEMATOCRIT 43.5 % (39.0-51.0); HEMO FLAGS DIFF FINAL; LYMPH % 37.3 % (9.0-44.0); LYMPHOCYTE # 2.1 TH/MM3 (1.0-4.8); MEAN CELL VOLUME 95.4 FL (80.0-100.0); MEAN CORPUSCULAR HGB CONC 34.6 % (32.0-36.0); MONO % 15.1 % (0.0-8.0); PLATELET COUNT 153 TH/MM3 (150-450); RED BLOOD COUNT 4.56 MIL/MM3 (4.50-5.90); RED CELL DISTRIBUTION WIDTH 13.3 % (11.6-17.2); WHITE BLOOD COUNT 5.6 TH/MM3 (4.0-11.0)
[2016-04-29] MEDS ORDERED: ALBU0.08 NEB (21:18)
[2016-04-29] MEDS ORDERED: ALBUAER3 INH (21:18)
[2016-04-29 21:22] LABS: CHLORIDE 104 MEQ/L (98-107); POTASSIUM 3.8 MEQ/L (3.5-5.1); SODIUM (NA) 142 MEQ/L (136-145)
[2016-04-29 21:25] LABS: ANION GAP 14 MEQ/L (5-15); BICARBONATE 24.4 MEQ/L (21.0-32.0); BLOOD UREA NITROGEN 7 MG/DL (7-18); MAGNESIUM 2.4 MG/DL (1.5-2.5)
[2016-04-29 21:28] LABS: ALT (GPT) 60 U/L (12-78); AST (GOT) 79 U/L (15-37); GLOMERULAR FILTRATION RATE 100 ML/MIN (>89)
[2016-04-29 21:30] LABS: TOTAL BILIRUBIN ADULT 0.4 MG/DL (0.2-1.0)
[2016-04-29 21:31] LABS: ALKALINE PHOSPHATASE 71 U/L (45-117)
[2016-04-29 21:42] LABS: CREATINE KINASE 167 U/L (39-308)
--- NOTE | 2016-04-29 21:48 | RADHPO ---
EXAM DATE/TIME: 04/29/2016 21:20 [facility] COMPARISON: CHEST PA & LAT, April 01, 2016, 20:45. CT PULMONARY ANGIOGRAM, August 20, 2015, 2:56. INDICATIONS : Short of breath. MEDICAL HISTORY : Chronic obstructive pulmonary disease. Carcinoma, lung. SURGICAL HISTORY : None. ENCOUNTER: Initial ACUITY: 1 day PAIN SCORE: 0/10 LOCATION: Bilateral chest FINDINGS: Lobulated masslike opacity of the left upper lobe again noted, not significantly changed. Lungs other alvarado appear clear. No pleural effusion. No pneumothorax. CONCLUSION: No acute process. Lobulated left upper lobe mass again seen. Hemant Tobias MD on April 29, 2016 at 21:46 Board Certified Radiologist. This report was verified electronically.
[2016-04-29 21:54] LABS: CKMB LESS THAN 0.5 NG/ML (0.5-3.6)
[2016-04-29] MEDS ORDERED: PRED50 PO (21:58)
[2016-04-29 22:00] VITALS: BP 109/87; PULSE 96; RESP 18; O2SAT 98
--- NOTE | 2016-04-29 23:20 | EKG ---
Date Performed: 04/29/2016 Time Performed: 20:50:58 PTAGE: 50 years EKG: Sinus rhythm Normal ECG PREVIOUS TRACING : 03/25/2016 21.44 Compared to prior tracing no significant change DOCTOR: Migue Ackerman Interpretating Date/Time 04/29/2016 23:18:56
== END 2016-04-29 22:15 | disposition home or self-care (01) ==
LOC: PHED 20:25
DX: J44.1 Chronic obstructive pulmonary disease with (acute) exacerbation (principal); F10.220 Alcohol dependence with intoxication, uncomplicated; F17.210 Nicotine dependence, cigarettes, uncomplicated; I48.91 Unspecified atrial fibrillation; I10 Essential (primary) hypertension; Y90.8 Blood alcohol level of 240 mg/100 ml or more; Z76.5 Malingerer [conscious simulation]; Z91.14 Patient's other noncompliance with medication regimen; Z91.19 Patient's noncompliance with other medical treatment and regimen
CPT/HCPCS: 71020; 80053; 80320; 82550; 82552; 83735; 84484; 85025; 87804; 93005; 94640; 94664; 96374; 99285; J2930

== ENCOUNTER 2016-05-24 22:09 | Emergency (ER) | payer OTHER ==
[~2016-05-24] VITALS: Ht 182.9 cm; Wt 76.0 kg
[~2016-05-24 22:09] MED LIST changes: +ALBU0.08 NEB; -MEDR4PAK PO; +PRED50 PO
[2016-05-24 22:17] VITALS: BP 137/98; PULSE 90; RESP 16; TEMP 98.6; O2SAT 96
--- NOTE | 2016-05-24 22:52 | PD ---
HPI Chief Complaint: Respiratory Symptoms Time Seen by Provider: 22:46 Travel History International Travel<30 days: No Contact w/Intl Traveler<30days: No Traveled to known affect area: No History of Present Illness HPI The patient is a 50-year-old male alcoholic who frequently comes to the emergency department when he gets alcohol intoxicated. This time his main complaint is wheezing/shortness of breath. He does have a history of COPD and continues to smoke one half pack a day. He has some findings on x-ray in January and his left lung. Apparently none of these lesions are getting larger. PFSH Past Medical History Hx Anticoagulant Therapy: No Arthritis: No Asthma: Yes Atrial Fibrillation: Yes Anxiety: Yes Depression: Yes Cancer: Yes (STAGE IV LUNG CA) Cardiac Catheterization: No Cardiovascular Problems: Yes (HTN) High Cholesterol: No Chemotherapy: No Chest Pain: Yes Congestive Heart Failure: No COPD: Yes Diabetes: No Diminished Hearing: No Endocrine: No Gastrointestinal Disorders: Yes (GERD) GERD: Yes Genitourinary: No Hepatitis: Yes (HEP C) Hiatal Hernia: No Hypertension: Yes Immune Disorder: No Implanted Vascular Access Dvce: Yes Medical other: No Neurologic: No Reproductive: No Respiratory: Yes (STAGE 4 LUNG CA) Immunizations Current: Yes Radiation Therapy: No Seizures: Yes (ETOH WITHDRAWAL) Sleep Apnea: No Thyroid Disease: No Ulcer: Yes ?: Not Past Surgical History Abdominal Surgery: No AICD: No Arteriovenous Shunt: No Body Medical Devices: SCREW IN LEFT WRIST Cardiac Surgery: No Ear Surgery: No Endocrine Surgery: No Eye Surgery: No Genitourinary Surgery: No Gynecologic Surgery: No Insulin Pump: No Joint Replacement: No Neurologic Surgery: No Oral Surgery: No Pacemaker: No Thoracic Surgery: Yes (BIOPSIES OF LT LUNG) Tonsillectomy: Yes Other Surgery: Yes Social History Alcohol Use: Yes ("MAYBE A 4 PACK OF BEER A DAY", unspecified amount of beer today (04/01/16)) Tobacco Use: Yes (3/4 PPD) Substance Use: No Allergies-Medications (Allergen,Severity, Reaction): Coded Allergies: Lisinopril (Verified Allergy, Severe, Anaphylaxis, 04/29/16) Penicillin (Verified Adverse Reaction, Severe, WEAKNESS, "KNOCKS ME OUT", 04/29/16) Reported Meds & Prescriptions Reported Meds & Active Scripts Active Albuterol Neb (Albuterol Sulfate) 2.5 Mg/3 Ml Neb 2.5 Mg NEB QID NEB Proair Hfa 8.5 GM Inh (Albuterol Sulfate) 90 Mcg/Act Aer 2 Puff INH Q4-6H PRN 108 mcg/actuation Reported Combivent Respimat Inh (Ipratropium-Albuterol Inh) 20-[address] Half-[address]/Act Aero 1 Puff INH QID Review of Systems Except as stated in HPI: all other systems reviewed are Neg Physical Exam Narrative GENERAL: The patient is alert, oriented 3 and smells strongly of beer. He answers questions quickly and appropriately. His vital signs show blood pressure 137/98 but are otherwise normal. SKIN: Warm and dry. HEAD: Atraumatic. Normocephalic. EYES: Pupils equal and round. No scleral icterus. No injection or drainage. ENT: No nasal bleeding or discharge. Mucous membranes pink and moist. NECK: Trachea midline. No JVD. CARDIOVASCULAR: Regular rate and rhythm. No murmur appreciated. RESPIRATORY: No accessory muscle use. Widely Scattered wheezes are heard in both lungs consistent with his heavy smoking. Breath sounds equal bilaterally. GASTROINTESTINAL: Abdomen soft, non-tender, nondistended. Hepatic and splenic margins not palpable. MUSCULOSKELETAL: No obvious deformities. No clubbing. No cyanosis. No edema. NEUROLOGICAL: Awake and alert. No obvious cranial nerve deficits. Motor grossly within normal limits. Normal speech. PSYCHIATRIC: Appropriate mood and affect; insight and judgment normal. Data Data Last Documented VS Vital Signs Date Time Temp Pulse Resp B/P Pulse Ox O2 Delivery O2 Flow Rate FiO2 05/24/16 22:33 18 96 Room Air 05/24/16 22:17 98.6 90 137/98 Orders Complete Blood Count With Diff (05/24/16 22:46) Comprehensive Metabolic Panel (05/24/16 22:46) Chest, Pa & Lat (05/24/16 22:46) Blood Glucose (05/24/16 22:46) Ecg Monitoring (05/24/16 22:46) Iv Access Insert/Monitor (05/24/16 22:46) Oximetry (05/24/16 22:46) Sodium Chloride 0.9% Flush (Ns Flush) (05/24/16 23:00) Alcohol (Ethanol) (05/24/16 22:46) Albuterol-Ipratropium Neb (Duoneb Neb) (05/24/16 23:00) Labs Laboratory Tests Test 05/24/16 23:20 White Blood Count 6.1 TH/MM3 Red Blood Count 4.28 MIL/MM3 Hemoglobin 14.3 GM/DL Hematocrit 41.0 % Mean Corpuscular Volume 95.9 FL Mean Corpuscular Hemoglobin 33.5 PG Mean Corpuscular Hemoglobin 34.9 % Concent Red Cell Distribution Width 13.5 % Platelet Count 173 TH/MM3 Mean Platelet Volume 7.8 FL Neutrophils (%) (Auto) 43.9 % Lymphocytes (%) (Auto) 38.3 % Monocytes (%) (Auto) 14.3 % Eosinophils (%) (Auto) 1.4 % Basophils (%) (Auto) 2.1 % Neutrophils # (Auto) 2.7 TH/MM3 Lymphocytes # (Auto) 2.3 TH/MM3 Monocytes # (Auto) 0.9 TH/MM3 Eosinophils # (Auto) 0.1 TH/MM3 Basophils # (Auto) 0.1 TH/MM3 CBC Comment DIFF FINAL Differential Comment Sodium Level 145 MEQ/L Potassium Level 4.0 MEQ/L Chloride Level 107 MEQ/L Carbon Dioxide Level 25.8 MEQ/L Anion Gap 12 MEQ/L Blood Urea Nitrogen 8 MG/DL Creatinine 0.79 MG/DL Estimat Glomerular Filtration 103 ML/MIN Rate Random Glucose 88 MG/DL Calcium Level 9.0 MG/DL Total Bilirubin 0.3 MG/DL Aspartate Amino Transf 51 U/L (AST/SGOT) Alanine Aminotransferase 53 U/L (ALT/SGPT) Alkaline Phosphatase 68 U/L Total Protein 7.4 GM/DL Albumin 3.9 GM/DL Ethyl Alcohol Level 216 MG/DL [facility] Medical Decision Making Medical Screen Exam Complete: Yes Emergency Medical Condition: Yes Medical Record Reviewed: Yes Interpretation(s) The CBC is normal. The alcohol level is 216. The complete metabolic profile shows an AST of 51 but is otherwise normal. The chest x-ray shows no acute disease. Differential Diagnosis COPD with acute exacerbation, alcohol abuse, tobacco abuse, electrolyte disorder , hepatic encephalopathyunlikely, alcoholic hepatitis, anemia Narrative Course The patient appears to have COPD with acute exacerbation. It is now 12 midnight and the patient is walking around normally and wants to go home. He says he feels much better and wants to go home. His alcohol level is 216, he has had much higher alcohol levels before and he functions well at this level. Diagnosis Primary Impression: COPD with acute exacerbation Additional Impression: Alcohol abuse Additional Instructions: Discontinue alcohol and smoking. Use [facility] if you need help discontinuing alcohol. Med/Other Pt SpecificInfo: No Change to Meds Disposition: 01 DISCHARGE HOME Condition: Stable Macho Palafox MD May 24, 2016 22:52
[2016-05-24] MEDS ORDERED: SODIUM CHLORIDE 0.9% FLUSH 5 ML FLUSH IVF PRN (23:00)
[2016-05-24] MEDS: RESP: ALBUTEROL 2.5 MG/IPRATROPIUM 0.5 MG NEB (SCH) INH ×3 (23:20→23:35)
--- NOTE | 2016-05-24 23:23 | RADHPO ---
EXAM DATE/TIME: 05/24/2016 23:01 [facility] COMPARISON: CHEST PA & LAT, April 29, 2016, 21:20. INDICATIONS : Short of breath. MEDICAL HISTORY : Chronic obstructive pulmonary disease. Carcinoma, lung. asthma. SURGICAL HISTORY : None. ENCOUNTER: Initial ACUITY: 2 days PAIN SCORE: 0/10 LOCATION: Bilateral chest FINDINGS: PA and lateral views of the chest demonstrate the lungs to be symmetrically aerated without evidence of mass, infiltrate or effusion. The cardiomediastinal contours are unremarkable. Osseous structure s are intact. CONCLUSION: No acute disease. Alban Duong MD on May 24, 2016 at 23:22 Board Certified Radiologist. This report was verified electronically.
[2016-05-24 23:32] LABS: AUTOMATED NEUTROPHIL # 2.7 TH/MM3 (1.8-7.7); BASOPHIL # 0.1 TH/MM3 (0-0.2); BASOPHIL % 2.1 % (0.0-2.0); EOSINOPHIL # 0.1 TH/MM3 (0-0.4); EOSINOPHIL % 1.4 % (0.0-4.0); HEMO FLAGS DIFF FINAL; LYMPH % 38.3 % (9.0-44.0); LYMPHOCYTE # 2.3 TH/MM3 (1.0-4.8); MEAN CELL VOLUME 95.9 FL (80.0-100.0); MEAN CORPUSCULAR HEMOGLOBIN 33.5 PG (27.0-34.0); MEAN CORPUSCULAR HGB CONC 34.9 % (32.0-36.0); MONO % 14.3 % (0.0-8.0); NEUT % 43.9 % (16.0-70.0); PLATELET COUNT 173 TH/MM3 (150-450); RED BLOOD COUNT 4.28 MIL/MM3 (4.50-5.90); RED CELL DISTRIBUTION WIDTH 13.5 % (11.6-17.2); WHITE BLOOD COUNT 6.1 TH/MM3 (4.0-11.0)
[2016-05-24 23:45] LABS: CHLORIDE 107 MEQ/L (98-107); SODIUM (NA) 145 MEQ/L (136-145)
[2016-05-24 23:49] LABS: ANION GAP 12 MEQ/L (5-15); BICARBONATE 25.8 MEQ/L (21.0-32.0); BLOOD UREA NITROGEN 8 MG/DL (7-18)
[2016-05-24 23:52] LABS: ALT (GPT) 53 U/L (12-78); AST (GOT) 51 U/L (15-37); GLOMERULAR FILTRATION RATE 103 ML/MIN (>89)
[2016-05-24 23:53] LABS: TOTAL BILIRUBIN ADULT 0.3 MG/DL (0.2-1.0)
[2016-05-24 23:54] LABS: ALKALINE PHOSPHATASE 68 U/L (45-117)
[2016-05-25 00:24] VITALS: BP 137/82
== END 2016-05-25 00:28 | disposition home or self-care (01) ==
LOC: PHED 22:09
DX: J44.1 Chronic obstructive pulmonary disease with (acute) exacerbation (principal); F10.10 Alcohol abuse, uncomplicated; C34.90 Malignant neoplasm of unspecified part of unspecified bronchus or lung; I48.91 Unspecified atrial fibrillation; I10 Essential (primary) hypertension; F17.200 Nicotine dependence, unspecified, uncomplicated; Z87.09 Personal history of other diseases of the respiratory system; Z87.19 Personal history of other diseases of the digestive system; Z86.69 Personal history of other diseases of the nervous system and sense organs; Z86.59 Personal history of other mental and behavioral disorders
CPT/HCPCS: 71020; 80053; 80307; 85025; 94640; 94664; 99285

== ENCOUNTER 2016-05-31 23:48 | Emergency (ER) | payer OTHER ==
[~2016-05-31] VITALS: Ht 182.9 cm; Wt 75.9 kg
[~2016-05-31 23:48] MED LIST changes: -CELE20TA PO; -LORA1TAB12 PO; -OMEP20TA PO; -PRED50 PO
[2016-05-31 23:54] VITALS: BP 135/95; PULSE 95; TEMP 97.3; O2SAT 98
[2016-06-01] MEDS ORDERED: SODIUM CHLORIDE 0.9% FLUSH 10 ML FLUSH IVF PRN (00:30)
--- NOTE | 2016-06-01 00:31 | PD ---
HPI Chief Complaint: Respiratory Distress Time Seen by Provider: 00:28 Travel History International Travel<30 days: No Contact w/Intl Traveler<30days: No Traveled to known affect area: No History of Present Illness HPI 50-year-old male presents to the emergency department by EMS transport for complaint of 2 hours of shortness of breath. Patient has COPD. Patient does not report any other concerns or complaints at this time. Admits to drinking alcohol. No report of fever or productive cough, no hemoptysis or pleuritic pain, no chest pain, abdominal pain, injury or fall. Unable to identify exacerbating or alleviating factors. Patient is frequently seen in the emergency department for same complaint of heavy alcohol consumption and dyspnea related to his history of COPD. PFSH Past Medical History Narrative Medical COPD tobacco use abnormal chest x-ray; tobacco use alcohol use and: Nursing notes reviewed Hx Anticoagulant Therapy: No Arthritis: No Asthma: Yes Atrial Fibrillation: Yes Anxiety: Yes Depression: Yes Cancer: Yes (STAGE IV LUNG CA) Cardiac Catheterization: No Cardiovascular Problems: Yes (HTN) High Cholesterol: No Chemotherapy: No Chest Pain: Yes Congestive Heart Failure: No COPD: Yes Diabetes: No Diminished Hearing: No Endocrine: No Gastrointestinal Disorders: Yes (GERD) GERD: Yes Genitourinary: No Hepatitis: Yes (HEP C) Hiatal Hernia: No Hypertension: Yes Immune Disorder: No Implanted Vascular Access Dvce: Yes Neurologic: No Reproductive: No Respiratory: Yes (STAGE 4 LUNG CA) Immunizations Current: Yes Radiation Therapy: No Seizures: Yes (ETOH WITHDRAWAL) Sleep Apnea: No Thyroid Disease: No Ulcer: Yes Past Surgical History Abdominal Surgery: No AICD: No Arteriovenous Shunt: No Body Medical Devices: SCREW IN LEFT WRIST Cardiac Surgery: No Ear Surgery: No Endocrine Surgery: No Eye Surgery: No Genitourinary Surgery: No Gynecologic Surgery: No Insulin Pump: No Joint Replacement: No Neurologic Surgery: No Oral Surgery: No Pacemaker: No Thoracic Surgery: Yes (BIOPSIES OF LT LUNG) Tonsillectomy: Yes Other Surgery: Yes Social History Alcohol Use: Yes ("MAYBE A 4 PACK OF BEER A DAY", unspecified amount of beer today (04/01/16)) Tobacco Use: Yes (05/09 PPD) Substance Use: No Allergies-Medications (Allergen,Severity, Reaction): Coded Allergies: Lisinopril (Verified Allergy, Severe, Anaphylaxis, 06/01/16) Penicillin (Verified Adverse Reaction, Severe, WEAKNESS, "KNOCKS ME OUT", 06/01/16) Reported Meds & Prescriptions Reported Meds & Active Scripts Active Albuterol Neb (Albuterol Sulfate) 2.5 Mg/3 Ml Neb 2.5 Mg NEB QID NEB Proair Hfa 8.5 GM Inh (Albuterol Sulfate) 90 Mcg/Act Aer 2 Puff INH Q4-6H PRN 108 mcg/actuation Reported Combivent Respimat Inh (Ipratropium-Albuterol Inh) 20-100 Prison/Act Aero 1 Puff INH QID Review of Systems Except as stated in HPI: all other systems reviewed are Neg General / Constitutional: No: Fever HENT: No: Congestion Cardiovascular: No: Chest Pain or Discomfort Respiratory: Positive: Shortness of Breath, Wheezing Gastrointestinal: No: Abdominal Pain Genitourinary: No: Flank Pain Musculoskeletal: No: Pain Skin: No Rash Neurologic: No: Weakness Psychiatric: No: Anxiety Hematologic/Lymphatic: No: Lymph Node Enlargement Physical Exam Narrative GENERAL: Well-developed well-nourished male in no acute distress no respiratory distress SKIN: Warm and dry. HEAD: Normocephalic. EYES: No scleral icterus. No injection or drainage. NECK: Supple, trachea midline. No JVD or lymphadenopathy. CARDIOVASCULAR: Regular rate and rhythm without murmurs, gallops, or rubs. RESPIRATORY: Breath sounds equal bilaterally except for few expiratory wheezes. No accessory muscle use. GASTROINTESTINAL: Abdomen soft, non-tender, nondistended. MUSCULOSKELETAL: No cyanosis, or edema. BACK: Nontender without obvious deformity. No CVA tenderness. Data Data Last Documented VS Vital Signs Date Time Temp Pulse Resp B/P Pulse Ox O2 Delivery O2 Flow Rate FiO2 06/01/16 02:35 108 18 122/81 96 Room Air 06/01/16 00:40 2.00 05/31/16 23:54 97.3 Orders Complete Blood Count With Diff (06/01/16 00:28) Basic Metabolic Panel (Bmp) (06/01/16 00:28) Troponin I (06/01/16 00:28) Iv Access Insert/Monitor (06/01/16 00:28) Electrocardiogram (06/01/16 00:28) Ecg Monitoring (06/01/16 00:28) Oximetry (06/01/16 00:28) Oxygen Administration (06/01/16 00:28) Chest, Single Ap (06/01/16 00:28) Sodium Chloride 0.9% Flush (Ns Flush) (06/01/16 00:30) Albuterol-Ipratropium Neb (Duoneb Neb) (06/01/16 00:30) Alcohol (Ethanol) (06/01/16 00:28) Magnesium (Mg) (06/01/16 00:28) Aspirin Chew (Aspirin Chew) (06/01/16 01:15) Nitroglycerin Sl (Nitrostat Sl) (06/01/16 01:15) Sodium Chlor 0.9% 1000 Ml Inj (Ns 1000 M (06/01/16 01:15) Labs Laboratory Tests Test 06/01/16 00:00 White Blood Count 7.4 TH/MM3 Red Blood Count 4.47 MIL/MM3 Hemoglobin 14.8 GM/DL Hematocrit 43.3 % Mean Corpuscular Volume 96.8 FL Mean Corpuscular Hemoglobin 33.0 PG Mean Corpuscular Hemoglobin 34.2 % Concent Red Cell Distribution Width 14.3 % Platelet Count 164 TH/MM3 Mean Platelet Volume 8.1 FL Neutrophils (%) (Auto) 36.1 % Lymphocytes (%) (Auto) 49.6 % Monocytes (%) (Auto) 11.6 % Eosinophils (%) (Auto) 1.4 % Basophils (%) (Auto) 1.3 % Neutrophils # (Auto) 2.7 TH/MM3 Lymphocytes # (Auto) 3.6 TH/MM3 Monocytes # (Auto) 0.9 TH/MM3 Eosinophils # (Auto) 0.1 TH/MM3 Basophils # (Auto) 0.1 TH/MM3 CBC Comment DIFF FINAL Differential Comment Sodium Level 143 MEQ/L Potassium Level 3.7 MEQ/L Chloride Level 108 MEQ/L Carbon Dioxide Level 25.2 MEQ/L Anion Gap 10 MEQ/L Blood Urea Nitrogen 8 MG/DL Creatinine 0.89 MG/DL Estimat Glomerular Filtration 90 ML/MIN Rate Random Glucose 96 MG/DL Calcium Level 8.5 MG/DL Magnesium Level 2.3 MG/DL Troponin I LESS THAN 0.02 NG/ML Ethyl Alcohol Level 365 MG/DL MDM Medical Decision Making Medical Screen Exam Complete: Yes Emergency Medical Condition: Yes Medical Record Reviewed: Yes Interpretation(s) EKG sinus rhythm rate [address] elevation or injury pattern change noted Troponin I: Less than 0.02, not elevated Serum alcohol: 365, elevated cxr: no lobar infiltrate CBC & BMP Diagram 06/01/16 00:00 Vital Signs Date Time Temp Pulse Resp B/P Pulse Ox O2 Delivery O2 Flow Rate FiO2 06/01/16 00:40 99 Nasal Cannula 2.00 06/01/16 00:39 99 Aerosol Mask 06/01/16 00:02 Aerosol Mask 05/31/16 23:54 97.3 95 135/95 98 Differential Diagnosis Dyspnea, exacerbation COPD, medical noncompliance, CHF, ACS, PE, pneumothorax Narrative Course Patient placed on media monitor IV access obtained specimens collected and sent for resulting DuoNeb updrafts ordered @ 01:05 AM complains of chest pain 10/15; patient administered aspirin 162 mg by mouth, sublingual nitroglycerin 0.4 mg times one, and maintenance IV fluids normal saline 100 cc per hour EKG reveals no acute injury pattern; troponin I less than 0.02, not elevated; patient's serum alcohol was 365; chest x-ray reveals no lobar infiltrate effusion vascular congestion or pneumothorax; lab values otherwise in normal range; lung sounds clear after updraft treatment; patient reports now that he is hungry and would like to go home. In view of patient's serum alcohol level will have to allow patient to sleep off his alcohol ingestion. Patient now up out of bed walking around the emergency department stating he's really go home and feels well has called his mother to come and pick him up from the hospital. After multiple updraft treatments his shortness of breath has resolved. Patient states his alcohol level is always high. No report of any improvement of symptoms after one nitroglycerin. Patient walking on the emergency department denies any pain or chest pain or concerns. Diagnosis Primary Impression: COPD with acute exacerbation Additional Impressions: Alcohol ingestion Atypical chest pain Alcohol dependence with acute alcoholic intoxication Qualified Code: F10.220 - Alcohol dependence with acute alcoholic intoxication , uncomplicated Referrals: Primary Care Physician call for appointment [facility] day Patient Instructions: General Instructions Additional Instructions: Increase fluid hydration without drinking alcoholic beverages Follow-up with [facility] regarding resources for alcohol detox program Use inhaler as prescribed as needed Discontinue tobacco use Return to the emergency department for any concerns or change in condition Med/Other Pt SpecificInfo: Prescription(s) given Scripts Albuterol 8.5 GM Inh (Proair Hfa 8.5 GM Inh)90 Mcg/Act Aer2 Puff INH Q4-6H PRN ( SHORTNESS OF BREATH) #1 INHALER Ref 0 108 mcg/actuation Prov:Tina De Paz MD 06/01/16 Tina De Paz MD Jun 01, 2016 00:31
[2016-06-01] MEDS: RESP: ALBUTEROL 2.5 MG/IPRATROPIUM 0.5 MG NEB (SCH) INH (00:38)
[2016-06-01 00:40] VITALS: O2SAT 99
[2016-06-01 00:45] LABS: AUTOMATED NEUTROPHIL # 2.7 TH/MM3 (1.8-7.7); BASOPHIL # 0.1 TH/MM3 (0-0.2); BASOPHIL % 1.3 % (0.0-2.0); EOSINOPHIL # 0.1 TH/MM3 (0-0.4); EOSINOPHIL % 1.4 % (0.0-4.0); HEMATOCRIT 43.3 % (39.0-51.0); HEMO FLAGS DIFF FINAL; LYMPH % 49.6 % (9.0-44.0); LYMPHOCYTE # 3.6 TH/MM3 (1.0-4.8); MEAN CELL VOLUME 96.8 FL (80.0-100.0); MEAN CORPUSCULAR HGB CONC 34.2 % (32.0-36.0); MONO % 11.6 % (0.0-8.0); NEUT % 36.1 % (16.0-70.0); PLATELET COUNT 164 TH/MM3 (150-450); RED BLOOD COUNT 4.47 MIL/MM3 (4.50-5.90); RED CELL DISTRIBUTION WIDTH 14.3 % (11.6-17.2); WHITE BLOOD COUNT 7.4 TH/MM3 (4.0-11.0)
[2016-06-01 00:53] LABS: CHLORIDE 108 MEQ/L (98-107); POTASSIUM 3.7 MEQ/L (3.5-5.1); SODIUM (NA) 143 MEQ/L (136-145)
[2016-06-01 00:56] LABS: ANION GAP 10 MEQ/L (5-15); BICARBONATE 25.2 MEQ/L (21.0-32.0); BLOOD UREA NITROGEN 8 MG/DL (7-18); MAGNESIUM 2.3 MG/DL (1.5-2.5)
[2016-06-01 00:59] LABS: GLOMERULAR FILTRATION RATE 90 ML/MIN (>89)
[2016-06-01] MEDS ORDERED: SODIUM CHLOR 0.9% 1000 ML INJ 1,000 ML IV SCH (01:15)
[2016-06-01] MEDS ORDERED: NITROGLYCERIN 0.4 MG SL 25 TABS/BTL SL ONE (01:15)
[2016-06-01] MEDS ORDERED: ASPIRIN 81 MG CHEW TAB CHEW ONE (01:15)
--- NOTE | 2016-06-01 02:09 | RADHPO ---
EXAM DATE/TIME: 06/01/2016 00:48 [facility] COMPARISON: CHEST PA & LAT, May 24, 2016, 23:01. INDICATIONS : Shortness of breath. MEDICAL HISTORY : Chronic obstructive pulmonary disease. Carcinoma, lung. asthma. SURGICAL HISTORY : None. ENCOUNTER: Initial ACUITY: 1 day PAIN SCORE: 10/10 LOCATION: Bilateral chest FINDINGS: A single view of the chest demonstrates bibasilar subsegmental atelectasis. Diminished lung volumes. The cardiomediastinal contours are unremarkable. Osseous structures are intact. CONCLUSION: Bibasilar subsegmental atelectasis. Alexander Gold MD on June 01, 2016 at 2:07 Board Certified Radiologist. This report was verified electronically.
[2016-06-01 02:35] VITALS: BP 122/81; PULSE 108; RESP 18; O2SAT 96
[2016-06-01] MEDS ORDERED: ALBUAER3 INH (02:48)
--- NOTE | 2016-06-01 17:48 | EKG ---
Date Performed: 06/01/2016 Time Performed: 01:10:16 PTAGE: 50 years EKG: Sinus arrhythmia. Lateral T wave changes are nonspecific The inferior lateral T wave change s are new since prior tracing. Borderline ECG PREVIOUS TRACING : 04/29/2016 20.50 DOCTOR: Deric Mora Interpretating Date/Time 06/01/2016 17:46:11
== END 2016-06-01 02:58 | disposition home or self-care (01) ==
LOC: PHED 23:48
DX: J44.1 Chronic obstructive pulmonary disease with (acute) exacerbation (principal); R07.89 Other chest pain; F10.220 Alcohol dependence with intoxication, uncomplicated; I49.8 Other specified cardiac arrhythmias; F17.210 Nicotine dependence, cigarettes, uncomplicated; I48.91 Unspecified atrial fibrillation; J45.909 Unspecified asthma, uncomplicated; I10 Essential (primary) hypertension; B19.20 Unspecified viral hepatitis C without hepatic coma; K21.9 Gastro-esophageal reflux disease without esophagitis; Z85.118 Personal history of other malignant neoplasm of bronchus and lung
CPT/HCPCS: 71010; 80048; 80307; 83735; 84484; 85025; 93005; 94640; 94664; 96360; 99285; J7030

== ENCOUNTER 2016-06-20 22:24 | Emergency (ER) | payer OTHER ==
[~2016-06-20] VITALS: Ht 182.9 cm; Wt 75.6 kg
[2016-06-20 22:46] VITALS: BP 117/80; PULSE 100; RESP 18; TEMP 98.6; O2SAT 98
== END 2016-06-20 23:26 | disposition left against medical advice (07) ==
LOC: PHED 22:24
DX: R07.81 Pleurodynia (principal); Z53.21 Procedure and treatment not carried out due to patient leaving prior to being seen by health care provider
CPT/HCPCS: 99281

== ENCOUNTER 2016-08-04 20:24 | Emergency (ER) | payer OTHER ==
[~2016-08-04] VITALS: Ht 182.9 cm; Wt 77.0 kg
[2016-08-04 20:35] VITALS: BP 115/71; PULSE 91; RESP 22; TEMP 98.6; O2SAT 95
--- NOTE | 2016-08-04 20:58 | PD ---
HPI Chief Complaint: Respiratory Symptoms Time Seen by Provider: 20:53 Travel History International Travel<30 days: No Contact w/Intl Traveler<30days: No Traveled to known affect area: No History of Present Illness HPI 51 year-old male presents to the emergency department by EMS transport for complaint of shortness of breath. Patient reports shortness of breath times one week. Patient reports intermittent cough productive of yellow-green sputum and has had some vomiting over the past few mornings of yellow-green sputum. No report of hematemesis coffee-ground emesis melena hematochezia. Patient denies any abdominal pain. Patient has noted some diarrhea. Patient reports multiple family members have vomiting and diarrhea. Patient is not been on recent antibiotic. Patient reports his father was recently hospitalized with pneumonia. Patient denies any fever or chills. Patient does not report any chest pain. Patient is been seen numerous times in this emergency department for respiratory-related illnesses and complaints. Patient reports symptoms have been going on for at least 5 days to 1 week and he has not contacted his primary care provider. PFSH Past Medical History Narrative Medical Medical record and nursing notes reviewed; arthritis; asthma; chest pain; COPD; non-tuberculosis noncancerous cavitary lesion/mass; alcoholism; GERD; hepatitis C; hypertension; lung biopsy; tonsillectomy Hx Anticoagulant Therapy: No Arthritis: No Asthma: Yes Atrial Fibrillation: Yes Anxiety: Yes Depression: Yes Cancer: Yes (STAGE IV LUNG CA) Cardiac Catheterization: No Cardiovascular Problems: Yes (HTN) High Cholesterol: No Chemotherapy: No Chest Pain: Yes Congestive Heart Failure: No COPD: Yes Diabetes: No Diminished Hearing: No Endocrine: No Gastrointestinal Disorders: Yes (GERD) GERD: Yes Genitourinary: No Hepatitis: Yes (HEP C) Hiatal Hernia: No Hypertension: Yes Immune Disorder: No Implanted Vascular Access Dvce: Yes Medical other: No Neurologic: No Reproductive: No Respiratory: Yes (STAGE 4 LUNG CA) Immunizations Current: Yes Radiation Therapy: No Seizures: Yes (ETOH WITHDRAWAL) Sleep Apnea: No Thyroid Disease: No Ulcer: Yes ?: Not Past Surgical History Abdominal Surgery: No AICD: No Arteriovenous Shunt: No Body Medical Devices: SCREW IN LEFT WRIST Cardiac Surgery: No Ear Surgery: No Endocrine Surgery: No Eye Surgery: No Genitourinary Surgery: No Gynecologic Surgery: No Insulin Pump: No Joint Replacement: No Neurologic Surgery: No Oral Surgery: No Pacemaker: No Thoracic Surgery: Yes (BIOPSIES OF LT LUNG) Tonsillectomy: Yes Other Surgery: Yes Social History Alcohol Use: Yes ("MAYBE A 4 PACK OF BEER A DAY", unspecified amount of beer today (04/01/16)) Tobacco Use: Yes (3/4 PPD) Substance Use: No Allergies-Medications (Allergen,Severity, Reaction): Coded Allergies: Lisinopril (Verified Allergy, Severe, Anaphylaxis, 08/04/16) Penicillin (Verified Adverse Reaction, Severe, WEAKNESS, "KNOCKS ME OUT", 08/04/16) Reported Meds & Prescriptions Reported Meds & Active Scripts Active Proair Hfa 8.5 GM Inh (Albuterol Sulfate) 90 Mcg/Act Aer 2 Puff INH Q4-6H PRN 108 mcg/actuation Albuterol Neb (Albuterol Sulfate) 2.5 Mg/3 Ml Neb 2.5 Mg NEB QID NEB Proair Hfa 8.5 GM Inh (Albuterol Sulfate) 90 Mcg/Act Aer 2 Puff INH Q4-6H PRN 108 mcg/actuation Reported Combivent Respimat Inh (Ipratropium-Albuterol Inh) 20-100 Care Home/Act Aero 1 Puff INH QID Review of Systems Except as stated in HPI: all other systems reviewed are Neg Physical Exam Narrative GENERAL: Well-developed well-nourished male in no acute distress no respiratory distress SKIN: Warm and dry. HEAD: Normocephalic. EYES: No scleral icterus. No injection or drainage. NECK: Supple, trachea midline. No JVD or lymphadenopathy. CARDIOVASCULAR: Regular rate and rhythm without murmurs, gallops, or rubs. RESPIRATORY: Breath sounds equal bilaterally few wheezes bilaterally. No accessory muscle use. GASTROINTESTINAL: Abdomen soft, non-tender, nondistended. MUSCULOSKELETAL: No cyanosis, or edema. BACK: Nontender without obvious deformity. No CVA tenderness. Data Data Last Documented VS Vital Signs Date Time Temp Pulse Resp B/P Pulse Ox O2 Delivery O2 Flow Rate FiO2 08/04/16 20:40 95 Nasal Cannula 2 08/04/16 20:35 98.6 91 22 115/71 Orders Complete Blood Count With Diff (08/04/16 20:53) Basic Metabolic Panel (Bmp) (08/04/16 20:53) Troponin I (08/04/16 20:53) Iv Access Insert/Monitor (08/04/16 20:53) Electrocardiogram (08/04/16 20:53) Ecg Monitoring (08/04/16 20:53) Oximetry (08/04/16 20:53) Oxygen Administration (08/04/16 20:53) Chest, Single Ap (08/04/16 20:53) Sodium Chloride 0.9% Flush (Ns Flush) (08/04/16 21:00) Albuterol-Ipratropium Neb (Duoneb Neb) (08/04/16 21:00) Labs Laboratory Tests Test 08/04/16 21:10 White Blood Count 5.2 TH/MM3 Red Blood Count 4.11 MIL/MM3 Hemoglobin 14.1 GM/DL Hematocrit 40.1 % Mean Corpuscular Volume 97.5 FL Mean Corpuscular Hemoglobin 34.2 PG Mean Corpuscular Hemoglobin 35.1 % Concent Red Cell Distribution Width 12.8 % Platelet Count 127 TH/MM3 Mean Platelet Volume 8.0 FL Neutrophils (%) (Auto) 46.8 % Lymphocytes (%) (Auto) 40.9 % Monocytes (%) (Auto) 9.9 % Eosinophils (%) (Auto) 1.1 % Basophils (%) (Auto) 1.3 % Neutrophils # (Auto) 2.4 TH/MM3 Lymphocytes # (Auto) 2.1 TH/MM3 Monocytes # (Auto) 0.5 TH/MM3 Eosinophils # (Auto) 0.1 TH/MM3 Basophils # (Auto) 0.1 TH/MM3 CBC Comment DIFF FINAL Differential Comment Sodium Level 139 MEQ/L Potassium Level 3.7 MEQ/L Chloride Level 106 MEQ/L Carbon Dioxide Level 22.1 MEQ/L Anion Gap 11 MEQ/L Blood Urea Nitrogen 6 MG/DL Creatinine 0.93 MG/DL Estimat Glomerular Filtration 85 ML/MIN Rate Random Glucose 94 MG/DL Calcium Level 8.3 MG/DL Troponin I LESS THAN 0.02 NG/ML MDM Medical Decision Making Medical Screen Exam Complete: Yes Emergency Medical Condition: Yes Medical Record Reviewed: Yes Interpretation(s) Last Impressions Chest X-Ray 08/04/162052 Signed Impressions: Service Date/Time: Thursday, August 04, 2016 21:31 - CONCLUSION: Normal examination. Jasbir Singer Jr., MD CBC & BMP Diagram 08/04/16 21:10 Vital Signs Date Time Temp Pulse Resp B/P Pulse Ox O2 Delivery O2 Flow Rate FiO2 08/04/16 20:40 95 Nasal Cannula 2 08/04/16 20:38 95 Room Air 08/04/16 20:35 98.6 91 22 115/71 95 troponin I: less than 0.02, not elevated Differential Diagnosis Dyspnea, exacerbation COPD, bronchitis, pneumonia, ACS unlikely PE Narrative Course Specimens collected and sent for resulting patient given [facility] 2 Patient agreeable to blood work and imaging study but refuses EKG; chest x-ray reveals no acute process and lap eyes are found to be in normal range at 9:56 PM refusing further evaluation and states he wants to sign out AGAINST MEDICAL ADVICE; the patient has pulled out his own IV and was found laying the floor with a paper towel and then wiping his arm with the same paper towel; patient has not been given any medications to interfere with impede his ability to make this decision; patient is aware of risk benefit of leaving AGAINST MEDICAL ADVICE. AMA: The risks of leaving against medical advice without further evaluation treatment were discussed with the patient. These risks include cardiac dysfunction, cardiac dysrhythmia, possible heart attack, possible stroke or . The patient indicated understanding of these risks and appeared to have the capacity to make this decision. Diagnosis Primary Impression: Left against medical advice Additional Impression: COPD with emphysema Disposition: 07 AGAINST MEDICAL ADVICE Condition: Stable Tina De Paz MD August 04, 2016 20:58
[2016-08-04] MEDS ORDERED: SODIUM CHLORIDE 0.9% FLUSH 10 ML FLUSH IVF PRN (21:00)
[2016-08-04] MEDS: RESP: ALBUTEROL 2.5 MG/IPRATROPIUM 0.5 MG NEB (SCH) INH ×2 (21:12→21:13)
[2016-08-04 21:21] LABS: AUTOMATED NEUTROPHIL # 2.4 TH/MM3 (1.8-7.7); BASOPHIL # 0.1 TH/MM3 (0-0.2); BASOPHIL % 1.3 % (0.0-2.0); EOSINOPHIL # 0.1 TH/MM3 (0-0.4); EOSINOPHIL % 1.1 % (0.0-4.0); HEMATOCRIT 40.1 % (39.0-51.0); HEMO FLAGS DIFF FINAL; LYMPH % 40.9 % (9.0-44.0); LYMPHOCYTE # 2.1 TH/MM3 (1.0-4.8); MEAN CELL VOLUME 97.5 FL (80.0-100.0); MEAN CORPUSCULAR HEMOGLOBIN 34.2 PG (27.0-34.0); MEAN CORPUSCULAR HGB CONC 35.1 % (32.0-36.0); MONO % 9.9 % (0.0-8.0); NEUT % 46.8 % (16.0-70.0); PLATELET COUNT 127 TH/MM3 (150-450); RED BLOOD COUNT 4.11 MIL/MM3 (4.50-5.90); RED CELL DISTRIBUTION WIDTH 12.8 % (11.6-17.2); WHITE BLOOD COUNT 5.2 TH/MM3 (4.0-11.0)
[2016-08-04 21:32] LABS: CHLORIDE 106 MEQ/L (98-107); POTASSIUM 3.7 MEQ/L (3.5-5.1); SODIUM (NA) 139 MEQ/L (136-145)
[2016-08-04 21:37] LABS: ANION GAP 11 MEQ/L (5-15); BICARBONATE 22.1 MEQ/L (21.0-32.0); BLOOD UREA NITROGEN 6 MG/DL (7-18)
--- NOTE | 2016-08-04 21:39 | RADHPO ---
EXAM DATE/TIME: 08/04/2016 21:31 [facility] COMPARISON: CHEST SINGLE AP, June 01, 2016, 0:48. INDICATIONS : Short of breath. MEDICAL HISTORY : Chronic obstructive pulmonary disease. Carcinoma, lung. SURGICAL HISTORY : None. ENCOUNTER: Initial ACUITY: 1 day PAIN SCORE: 0/10 LOCATION: Bilateral chest FINDINGS: A single view of the chest demonstrates the lungs to be symmetrically aerated without evidence of mas s, infiltrate or effusion. The cardiomediastinal contours are unremarkable. Osseous structures are intact. CONCLUSION: Normal examination. Jasbir Singer Jr., MD on August 04, 2016 at 21:37 Board Certified Radiologist. This report was verified electronically.
[2016-08-04 21:40] LABS: GLOMERULAR FILTRATION RATE 85 ML/MIN (>89)
== END 2016-08-04 22:06 | disposition left against medical advice (07) ==
LOC: PHED 20:24
DX: J43.9 Emphysema, unspecified (principal); R11.10 Vomiting, unspecified; J45.909 Unspecified asthma, uncomplicated; I48.91 Unspecified atrial fibrillation; I10 Essential (primary) hypertension; K21.9 Gastro-esophageal reflux disease without esophagitis; F17.200 Nicotine dependence, unspecified, uncomplicated; Z85.118 Personal history of other malignant neoplasm of bronchus and lung; Z53.21 Procedure and treatment not carried out due to patient leaving prior to being seen by health care provider
CPT/HCPCS: 71010; 80048; 84484; 85025; 94640; 94664; 99284

== ENCOUNTER 2016-09-11 23:14 | Emergency (ER) | payer OTHER ==
[2016-09-12 00:05] LABS: AUTOMATED NEUTROPHIL # 1.7 TH/MM3 (1.8-7.7); BASOPHIL # 0.1 TH/MM3 (0-0.2); BASOPHIL % 1.2 % (0.0-2.0); EOSINOPHIL # 0.1 TH/MM3 (0-0.4); EOSINOPHIL % 2.6 % (0.0-4.0); HEMO FLAGS DIFF FINAL; LYMPH % 50.5 % (9.0-44.0); LYMPHOCYTE # 2.6 TH/MM3 (1.0-4.8); MEAN CELL VOLUME 96.6 FL (80.0-100.0); MEAN CORPUSCULAR HEMOGLOBIN 33.5 PG (27.0-34.0); MEAN CORPUSCULAR HGB CONC 34.7 % (32.0-36.0); MONO % 11.9 % (0.0-8.0); NEUT % 33.8 % (16.0-70.0); PLATELET COUNT 165 TH/MM3 (150-450); RED BLOOD COUNT 4.56 MIL/MM3 (4.50-5.90); RED CELL DISTRIBUTION WIDTH 13.4 % (11.6-17.2); WHITE BLOOD COUNT 5.1 TH/MM3 (4.0-11.0)
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
[2016-09-12 00:28] LABS: ALT (GPT) 81 U/L (12-78); ANION GAP 8 MEQ/L (5-15); AST (GOT) 71 U/L (15-37); BICARBONATE 26.9 MEQ/L (21.0-32.0); BLOOD UREA NITROGEN 5 MG/DL (7-18); CHLORIDE 103 MEQ/L (98-107); GLOMERULAR FILTRATION RATE 99 ML/MIN (>89); POTASSIUM 3.8 MEQ/L (3.5-5.1); SODIUM (NA) 138 MEQ/L (136-145)
[2016-09-12 00:30] LABS: ALKALINE PHOSPHATASE 81 U/L (45-117); TOTAL BILIRUBIN ADULT 0.5 MG/DL (0.2-1.0)
[2016-09-12 01:24] LABS: AMPHETAMINE, URINE NEG (NEG); BARBITURATES, URINE NEG (NEG); COCAINE, URINE NEG (NEG)
[2016-09-12 01:29] LABS: ACETAMINOPHEN LESS THAN 2.0 MCG/ML (10.0-30.0)
[2016-09-12] MEDS ORDERED: LORazepam 2 MG TAB PO PRN (02:15)
[2016-09-12] MEDS ORDERED: FLUMAZENIL 0.5 MG/5 ML VIAL IV PUSH PRN (02:15)
[2016-09-12] MEDS ORDERED: LORazepam 1 MG TAB PO PRN (02:15)
[2016-09-12] MEDS ORDERED: LORazepam 2 MG/ML VIAL IV PUSH PRN ×4 (02:15)
[2016-09-12 04:55] VITALS: BP 122/75; PULSE 102; RESP 20; TEMP 98.1; O2SAT 98
[2016-09-12 14:00] VITALS: BP 144/84; PULSE 98; RESP 18
[2016-09-12 18:04] VITALS: BP 136/90; PULSE 85; RESP 18; O2SAT 96
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
== END 2016-09-12 18:52 | disposition home or self-care (01) ==
LOC: NEPD 23:14 → NEPJ 09-12 18:52
DX: F10.220 Alcohol dependence with intoxication, uncomplicated (principal); S41.131A Puncture wound without foreign body of right upper arm, initial encounter; I48.91 Unspecified atrial fibrillation; F41.9 Anxiety disorder, unspecified; F32.9 Major depressive disorder, single episode, unspecified; J44.9 Chronic obstructive pulmonary disease, unspecified; K21.9 Gastro-esophageal reflux disease without esophagitis; W26.0XXA Contact with knife, initial encounter; Z85.118 Personal history of other malignant neoplasm of bronchus and lung
CPT/HCPCS: 80053; 80307; 85025; 99283

== ENCOUNTER 2016-11-24 22:15 | Emergency (ER) | payer OTHER ==
[~2016-11-24] VITALS: Ht 182.9 cm; Wt 72.7 kg
[2016-11-24 22:18] VITALS: BP 104/78; PULSE 102; RESP 18
--- NOTE | 2016-11-24 22:28 | PD ---
HPI Chief Complaint: Respiratory Symptoms Time Seen by Provider: 22:20 Travel History International Travel<30 days: No Contact w/Intl Traveler<30days: No Traveled to known affect area: No History of Present Illness HPI This 51-year-old male is complaining of shortness of breath. He has a history of COPD and he continues to smoke. He says he is an alcoholic. He continues to drink and has no interest in going to detox. He is feeling short of breath today. He has been told in the past that he has stage IV lung cancer. PFSH Past Medical History Hx Anticoagulant Therapy: No Arthritis: No Asthma: Yes Atrial Fibrillation: Yes Anxiety: Yes Depression: Yes Heart Rhythm Problems: Yes (irregular rhythm ) Cancer: Yes (STAGE IV LUNG CA) Cardiac Catheterization: No Cardiovascular Problems: Yes (HTN) High Cholesterol: No Chemotherapy: No Chest Pain: Yes Congestive Heart Failure: No COPD: Yes Diabetes: No Diminished Hearing: No Endocrine: No Gastrointestinal Disorders: Yes (GERD) GERD: Yes Genitourinary: No Hepatitis: Yes (HEP C) Hiatal Hernia: No Hypertension: Yes Immune Disorder: No Implanted Vascular Access Dvce: Yes Musculoskeletal: Yes Neurologic: No Psychiatric: Yes Reproductive: No Respiratory: Yes (STAGE 4 LUNG CA) Immunizations Current: Yes Pneumonia: Yes Radiation Therapy: No Seizures: Yes (ETOH WITHDRAWAL) Sleep Apnea: No Thyroid Disease: No Ulcer: Yes Past Surgical History Abdominal Surgery: No AICD: No Arteriovenous Shunt: No Body Medical Devices: SCREW IN LEFT WRIST Cardiac Surgery: No Ear Surgery: No Endocrine Surgery: No Eye Surgery: No Genitourinary Surgery: No Gynecologic Surgery: No Insulin Pump: No Joint Replacement: No Neurologic Surgery: No Oral Surgery: No Pacemaker: No Thoracic Surgery: Yes (BIOPSIES OF LT LUNG) Tonsillectomy: Yes Other Surgery: Yes Social History Alcohol Use: Yes ("MAYBE A 4 PACK OF BEER A DAY", unspecified amount of beer today (04/01/16)) Tobacco Use: Yes (3/4 PPD) Substance Use: Yes (Occasional Marijuana) Allergies-Medications (Allergen,Severity, Reaction): Coded Allergies: ipratropium (Verified Allergy, Severe, 11/24/16) lisinopril (Verified Allergy, Severe, Anaphylaxis, 11/24/16) penicillin G (Verified Adverse Reaction, Severe, WEAKNESS, "KNOCKS ME OUT ", 11/24/16) Reported Meds & Prescriptions Reported Meds & Active Scripts Active Review of Systems General / Constitutional: No: Fever, Chills Eyes: No: Diploplia, Blurred Vision HENT: No: Headaches, Vertigo Cardiovascular: No: Chest Pain or Discomfort, Palpitations Respiratory: Positive: Cough, Shortness of Breath Gastrointestinal: No: Nausea, Vomiting Genitourinary: No: Urgency, Frequency Musculoskeletal: No: Myalgias, Arthralgias Skin: No Rash Psychiatric: Positive: Substance Abuse Hematologic/Lymphatic: No: Easy Bruising Physical Exam Narrative GENERAL: Well-developed male SKIN: Focused skin assessment warm/dry. HEAD: Atraumatic. Normocephalic. EYES: Pupils equal and round. No scleral icterus. No injection or drainage. ENT: No nasal bleeding or discharge. Mucous membranes pink and moist. NECK: Trachea midline. No JVD. CARDIOVASCULAR: Regular rate and rhythm. No murmur appreciated. RESPIRATORY: Bilateral rhonchi, occasional wheezing. GASTROINTESTINAL: Abdomen soft, non-tender, nondistended. Hepatic and splenic margins not palpable. MUSCULOSKELETAL: No obvious deformities. No clubbing. No cyanosis. No edema. NEUROLOGICAL: Awake and alert. No obvious cranial nerve deficits. Motor grossly within normal limits. Normal speech. PSYCHIATRIC: Appropriate mood and affect; insight and judgment normal. Data Data Last Documented VS Vital Signs Date Time Temp Pulse Resp B/P (MAP) Pulse Ox O2 Delivery O2 Flow Rate FiO2 11/24/16 22:22 18 97 Room Air 11/24/16 22:18 102 104/78 (87) Orders Orders Chest, Single Ap (11/24/16 22:20) Iv Access Insert/Monitor (11/24/16 22:20) Ecg Monitoring (11/24/16 22:20) Oximetry (11/24/16 22:20) Oxygen Administration (11/24/16 22:20) Sodium Chloride 0.9% Flush (Ns Flush) (11/24/16 22:30) Albuterol-Ipratropium Neb (Duoneb Neb) (11/24/16 22:30) Prednisone (Deltasone) (11/24/16 22:30) Albuterol Neb (Albuterol Neb) (11/24/16 22:45) Albuterol Neb (Albuterol Neb) (11/24/16 22:45) [facility] Medical Decision Making Medical Screen Exam Complete: Yes Emergency Medical Condition: Yes Medical Record Reviewed: Yes Differential Diagnosis Differential includes pneumonia, COPD exacerbation, Narrative Course X-ray is similar to previous x-rays. There is evidence of COPD. There is a soft tissue mass which is been present for a long time. Patient has been given nebulizers and is stable for discharge Diagnosis Primary Impression: COPD with acute exacerbation Disposition: DISCHARGE HOME Condition: Stable Krishna Izaguirre MD Nov 24, 2016 22:28
[2016-11-24] MEDS ORDERED: predniSONE 20 MG TAB PO ONE (22:30)
[2016-11-24] MEDS ORDERED: RESP: ALBUTEROL 2.5 MG/IPRATROPIUM 0.5 MG NEB (SCH) INH (22:30)
[2016-11-24] MEDS ORDERED: SODIUM CHLORIDE 0.9% FLUSH 10 ML FLUSH IVF PRN (22:30)
[2016-11-24] MEDS ORDERED: RESP: ALBUTEROL 2.5 MG/3 ML NEB (SCH) NEB ONE ×2 (22:45)
--- NOTE | 2016-11-24 23:00 | RADRPT ---
EXAM DATE/TIME: 11/24/2016 22:47 [place] COMPARISON: CT PULMONARY ANGIOGRAM, November 25, 2014, 20:24. CT PULMONARY ANGIOGRAM, July 06, 2015, 18:25. C HEST SINGLE AP, August 09, 2015, 12:58. CHEST SINGLE AP, August 04, 2016, 21:31. INDICATIONS : Short of breath tonight. MEDICAL HISTORY : Hypertension. Emphysema. Hepatitis C. Chronic obstructive pulmonary disease. Carcinoma, lung. Ast hma. SURGICAL HISTORY : None. ENCOUNTER: Initial ACUITY: 1 day PAIN SCORE: 0/10 LOCATION: Bilateral chest FINDINGS: A single portable frontal view the chest shows a 5.2 x 2.1 cm oval-shaped soft tissue mass within the left apex. This is long-term stable. Previously characterized with CT. Remaining lungs are clear. No infiltrates or effusions. Heart is normal in size. No pneumothorax. Bony structures are unremarkable . CONCLUSION: 1. Long-term stable soft tissue mass within the left apex. 2. No acute infiltrate or effusion. Jasbir Singer Jr., MD on November 24, 2016 at 22:55 Board Certified Radiologist. This report was verified electronically.
[2016-11-24 23:14] VITALS: BP 133/83
== END 2016-11-24 23:25 | disposition home or self-care (01) ==
LOC: PHED 22:15
DX: J44.1 Chronic obstructive pulmonary disease with (acute) exacerbation (principal); I48.91 Unspecified atrial fibrillation; C34.90 Malignant neoplasm of unspecified part of unspecified bronchus or lung; I10 Essential (primary) hypertension; K21.9 Gastro-esophageal reflux disease without esophagitis; F17.200 Nicotine dependence, unspecified, uncomplicated
CPT/HCPCS: 71010; 94640; 94664; 99284; J7512; J7613

== ENCOUNTER 2017-02-21 19:31 | Emergency (ER) | payer OTHER ==
[~2017-02-21] VITALS: Ht 182.9 cm; Wt 76.5 kg
[2017-02-21 19:40] VITALS: BP 158/95; PULSE 90; RESP 20; TEMP 98.2; O2SAT 96
[2017-02-21] MEDS ORDERED: SODIUM CHLOR 0.9% 1000 ML INJ 1,000 ML IV SCH (19:57)
[2017-02-21] MEDS ORDERED: ONDANSETRON HCL 4 MG/2 ML VIAL IVP ONE (20:00)
[2017-02-21] MEDS ORDERED: SODIUM CHLORIDE 0.9% FLUSH 10 ML FLUSH IV FLUSH PRN (20:00)
[2017-02-21] MEDS ORDERED: MORPHINE SULFATE 4 MG/ML INJ IV PUSH ONE (20:00)
[2017-02-21 20:05] VITALS: BP 133/91; PULSE 88; RESP 18; O2SAT 95
--- NOTE | 2017-02-21 20:07 | PD ---
HPI Chief Complaint: abdominal pain Time Seen by Provider: 19:47 Travel History International Travel<30 days: No Contact w/Intl Traveler<30days: No Traveled to known affect area: No History of Present Illness HPI The patient is a 51-year-old male who presents emergency department for abdominal pain. The patient states he developed abdominal pain earlier today. The pain is located right lower quadrant, radiates into the right groin. The pain is worse with palpation and certain positional changes in the right inguinal area. He denies any dysuria, testicular pain, or scrotal swelling. He does note he had an episode of nausea earlier today with vomiting and one episode of diarrhea. He does complain of chronic epigastric abdominal pain and has a history of chronic alcohol abuse. He denies any known history of inguinal hernias. Symptoms are moderate, worse with palpation and certain movements, and minimally alleviated at rest. He denies any assisted fever, chills, or sweats. PFSH Past Medical History Hx Anticoagulant Therapy: No Arthritis: No Asthma: Yes Atrial Fibrillation: Yes Anxiety: Yes Depression: Yes Heart Rhythm Problems: Yes (irregular rhythm ) Cancer: Yes (STAGE IV LUNG CA) Cardiac Catheterization: No Cardiovascular Problems: Yes (HTN) High Cholesterol: No Chemotherapy: No Chest Pain: Yes Congestive Heart Failure: No COPD: Yes Diabetes: No Diminished Hearing: No Endocrine: No Gastrointestinal Disorders: Yes (GERD) GERD: Yes Genitourinary: No Hepatitis: Yes (HEP C) Hiatal Hernia: No Hypertension: Yes Immune Disorder: No Implanted Vascular Access Dvce: Yes Musculoskeletal: Yes Neurologic: No Psychiatric: Yes Reproductive: No Respiratory: Yes (STAGE 4 LUNG CA) Immunizations Current: Yes Pneumonia: Yes Radiation Therapy: No Seizures: Yes (ETOH WITHDRAWAL) Sleep Apnea: No Thyroid Disease: No Ulcer: Yes Past Surgical History Abdominal Surgery: No AICD: No Arteriovenous Shunt: No Body Medical Devices: SCREW IN LEFT WRIST Cardiac Surgery: No Ear Surgery: No Endocrine Surgery: No Eye Surgery: No Genitourinary Surgery: No Gynecologic Surgery: No Insulin Pump: No Joint Replacement: No Neurologic Surgery: No Oral Surgery: No Pacemaker: No Thoracic Surgery: Yes (BIOPSIES OF LT LUNG) Tonsillectomy: Yes Other Surgery: Yes Social History Alcohol Use: Yes ("MAYBE A 4 PACK OF BEER A DAY", unspecified amount of beer today (04/01/16)) Tobacco Use: Yes (3/4 PPD) Substance Use: Yes (Occasional Marijuana) Allergies-Medications (Allergen,Severity, Reaction): Coded Allergies: ipratropium (Verified Allergy, Severe, 11/24/16) lisinopril (Verified Allergy, Severe, Anaphylaxis, 11/24/16) penicillin G (Verified Adverse Reaction, Severe, WEAKNESS, "KNOCKS ME OUT ", 11/24/16) Reported Meds & Prescriptions Reported Meds & Active Scripts Active No Active Prescriptions or Reported Medications Review of Systems Except as stated in HPI: all other systems reviewed are Neg General / Constitutional: No: Fever, Chills Cardiovascular: No: Chest Pain or Discomfort Respiratory: No: Shortness of Breath Gastrointestinal: Positive: Nausea, Vomiting, Diarrhea, Abdominal Pain Genitourinary: No: Dysuria, Flank Pain Skin: No Rash Physical Exam Narrative GENERAL: Awake, alert, pleasant 51-year-old male who appears his stated age and is in no acute respiratory distress. SKIN: Focused skin assessment warm/dry. HEAD: Atraumatic. Normocephalic. EYES: Pupils equal and round. No scleral icterus. No injection or drainage. ENT: No nasal bleeding or discharge. Mucous membranes pink and moist. NECK: Trachea midline. No JVD. CARDIOVASCULAR: Regular rate and rhythm. No murmur appreciated. RESPIRATORY: No accessory muscle use. Clear to auscultation. Breath sounds equal bilaterally. GASTROINTESTINAL: Abdomen soft, mild tenderness over the right lateral suprapubic region. Negative Hernandez's. Negative McBurney's. Mild epigastric tenderness. No guarding or rigidity. Genitourinary: Circumcised phallus. The testicles are descended bilaterally and nontender. Inspection of the inguinal canal bilateral reveals no obvious hernia, however, patient has tenderness of the right inguinal hernia. There is mild swelling over the affected area when compared to the left, however, I cannot feel a true hernia. MUSCULOSKELETAL: No obvious deformities. No clubbing. No cyanosis. No edema. NEUROLOGICAL: Awake and alert. No obvious cranial nerve deficits. Motor grossly within normal limits. Normal speech. PSYCHIATRIC: Appropriate mood and affect; insight and judgment normal. Data Data Last Documented VS Vital Signs Date Time Temp Pulse Resp B/P (MAP) Pulse Ox O2 Delivery O2 Flow Rate FiO2 02/21/17 20:35 88 18 146/87 (106) 94 Room Air 02/21/17 19:40 98.2 Orders Orders Complete Blood Count With Diff (02/21/17 19:57) Comprehensive Metabolic Panel (02/21/17 19:57) Lipase (02/21/17 19:57) Urinalysis - C+S If Indicated (02/21/17 19:57) Ct Abd/Pel W/O Iv Contrast (02/21/17 19:57) Iv Access Insert/Monitor (02/21/17 19:57) Ecg Monitoring (02/21/17 19:57) Oximetry (02/21/17 19:57) Morphine Inj (Morphine Inj) (02/21/17 20:00) Ondansetron Inj (Zofran Inj) (02/21/17 20:00) Sodium Chlor 0.9% 1000 Ml Inj (Ns 1000 M (02/21/17 19:57) Sodium Chloride 0.9% Flush (Ns Flush) (02/21/17 20:00) Alcohol (Ethanol) (02/21/17 19:57) Lactic Acid (02/21/17 19:57) Labs Laboratory Tests Test 02/21/17 19:40 02/21/17 20:24 White Blood Count 7.0 TH/MM3 Red Blood Count 4.63 MIL/MM3 Hemoglobin 15.4 GM/DL Hematocrit 45.7 % Mean Corpuscular Volume 98.9 FL Mean Corpuscular Hemoglobin 33.3 PG Mean Corpuscular Hemoglobin Concent 33.7 % Red Cell Distribution Width 13.5 % Platelet Count 144 TH/MM3 Mean Platelet Volume 8.0 FL Neutrophils (%) (Auto) 53.0 % Lymphocytes (%) (Auto) 28.5 % Monocytes (%) (Auto) 16.7 % Eosinophils (%) (Auto) 0.9 % Basophils (%) (Auto) 0.9 % Neutrophils # (Auto) 3.6 TH/MM3 Lymphocytes # (Auto) 2.0 TH/MM3 Monocytes # (Auto) 1.2 TH/MM3 Eosinophils # (Auto) 0.1 TH/MM3 Basophils # (Auto) 0.1 TH/MM3 CBC Comment DIFF FINAL Differential Comment Blood Urea Nitrogen 5 MG/DL Creatinine 0.77 MG/DL Random Glucose 92 MG/DL Total Protein 7.8 GM/DL Albumin 3.9 GM/DL Calcium Level 8.6 MG/DL Alkaline Phosphatase 85 U/L Aspartate Amino Transf (AST/SGOT) 86 U/L Alanine Aminotransferase (ALT/SGPT) 82 U/L Total Bilirubin 0.7 MG/DL Sodium Level 137 MEQ/L Potassium Level 3.9 MEQ/L Chloride Level 104 MEQ/L Carbon Dioxide Level 21.9 MEQ/L Anion Gap 11 MEQ/L Estimat Glomerular Filtration Rate 106 ML/MIN Lipase 193 U/L Ethyl Alcohol Level 307 MG/DL Urine Color STRAW Urine Turbidity CLEAR Urine pH 5.5 Urine Specific [place] 1.003 Urine Protein NEG mg/dL Urine Glucose (UA) NEG mg/dL Urine Ketones NEG mg/dL Urine Occult Blood NEG Urine Nitrite NEG Urine Bilirubin NEG Urine Leukocyte Esterase NEG Urine Squamous Epithelial Cells 0-5 /hpf Microscopic Urinalysis Comment CULT NOT INDICATED Lactic Acid Level 2.2 mmol/L [facility] Medical Decision Making Medical Screen Exam Complete: Yes Emergency Medical Condition: Yes Medical Record Reviewed: Yes Interpretation(s) Laboratory Tests Test 02/21/17 19:40 02/21/17 20:24 White Blood Count 7.0 TH/MM3 Red Blood Count 4.63 MIL/MM3 Hemoglobin 15.4 GM/DL Hematocrit 45.7 % Mean Corpuscular Volume 98.9 FL Mean Corpuscular Hemoglobin 33.3 PG Mean Corpuscular Hemoglobin Concent 33.7 % Red Cell Distribution Width 13.5 % Platelet Count 144 TH/MM3 Mean Platelet Volume 8.0 FL Neutrophils (%) (Auto) 53.0 % Lymphocytes (%) (Auto) 28.5 % Monocytes (%) (Auto) 16.7 % Eosinophils (%) (Auto) 0.9 % Basophils (%) (Auto) 0.9 % Neutrophils # (Auto) 3.6 TH/MM3 Lymphocytes # (Auto) 2.0 TH/MM3 Monocytes # (Auto) 1.2 TH/MM3 Eosinophils # (Auto) 0.1 TH/MM3 Basophils # (Auto) 0.1 TH/MM3 CBC Comment DIFF FINAL Differential Comment Blood Urea Nitrogen 5 MG/DL Creatinine 0.77 MG/DL Random Glucose 92 MG/DL Total Protein 7.8 GM/DL Albumin 3.9 GM/DL Calcium Level 8.6 MG/DL Alkaline Phosphatase 85 U/L Aspartate Amino Transf (AST/SGOT) 86 U/L Alanine Aminotransferase (ALT/SGPT) 82 U/L Total Bilirubin 0.7 MG/DL Sodium Level 137 MEQ/L Potassium Level 3.9 MEQ/L Chloride Level 104 MEQ/L Carbon Dioxide Level 21.9 MEQ/L Anion Gap 11 MEQ/L Estimat Glomerular Filtration Rate 106 ML/MIN Lipase 193 U/L Ethyl Alcohol Level 307 MG/DL Urine Color STRAW Urine Turbidity CLEAR Urine pH 5.5 Urine Specific [place] 1.003 Urine Protein NEG mg/dL Urine Glucose (UA) NEG mg/dL Urine Ketones NEG mg/dL Urine Occult Blood NEG Urine Nitrite NEG Urine Bilirubin NEG Urine Leukocyte Esterase NEG Urine Squamous Epithelial Cells 0-5 /hpf Microscopic Urinalysis Comment CULT NOT INDICATED Lactic Acid Level 2.2 mmol/L CT of the abdomen and pelvis reveals suspected tiny nonobstructing renal stones. Hepatic steatosis. Old healed right 11th rib fracture. Differential Diagnosis Differential diagnosis includes nephrolithiasis, pyelonephritis, atypical appendicitis, neuralgia, inguinal hernia, incarcerated hernia, referred pain, pancreatitis. Narrative Course IV was established, labs are drawn and sent, and the patient was placed on cardiac telemetry monitoring and continuous pulse oximetry monitoring. The patient was administered morphine, Zofran, and IV fluids. Noncontrast CT the abdomen and pelvis was performed to evaluate for possible incarcerated hernia. Lactic acid is mildly elevated 2.2, however, CBC and CMP are unremarkable. Alcohol level is elevated at 307. The patient's CT of the abdomen and pelvis is unremarkable, no evidence of inguinal hernia or incarcerated hernia. The patient's UA is unremarkable, pain may be secondary to neuralgia. The patient is advised to decrease alcohol intake. He will be discharged home. Diagnosis Primary Impression: Abdominal pain Qualified Codes: R10.31 - Right lower quadrant pain Additional Impression: Alcohol intoxication Qualified Codes: F10.920 - Alcohol use, unspecified with intoxication, uncomplicated Patient Instructions: General Instructions Additional Instructions: Medication as directed. Follow-up with your primary physician. Please provide a patient a copy of his CT results and lab results at discharge. Tylenol and/ or ibuprofen as needed for pain. Decrease alcohol intake. Scripts No Active Prescriptions or Reported Meds Disposition: 01 DISCHARGE HOME Condition: Stable Derrick Hankins MD Feb 21, 2017 20:07
[2017-02-21 20:20] LABS: AUTOMATED NEUTROPHIL # 3.6 TH/MM3 (1.8-7.7); BASOPHIL # 0.1 TH/MM3 (0-0.2); BASOPHIL % 0.9 % (0.0-2.0); EOSINOPHIL # 0.1 TH/MM3 (0-0.4); EOSINOPHIL % 0.9 % (0.0-4.0); HEMATOCRIT 45.7 % (39.0-51.0); HEMOGLOBIN 15.4 GM/DL (13.0-17.0); LYMPH % 28.5 % (9.0-44.0); MEAN CELL VOLUME 98.9 FL (80.0-100.0); MEAN CORPUSCULAR HEMOGLOBIN 33.3 PG (27.0-34.0); MEAN CORPUSCULAR HGB CONC 33.7 % (32.0-36.0); MONO % 16.7 % (0.0-8.0); MONOCYTE # 1.2 TH/MM3 (0-0.9); PLATELET COUNT 144 TH/MM3 (150-450); RED BLOOD COUNT 4.63 MIL/MM3 (4.50-5.90); RED CELL DISTRIBUTION WIDTH 13.5 % (11.6-17.2)
[2017-02-21 20:30] LABS: CHLORIDE 104 MEQ/L (98-107); SODIUM (NA) 137 MEQ/L (136-145)
[2017-02-21 20:34] LABS: ALBUMIN 3.9 GM/DL (3.4-5.0); BICARBONATE 21.9 MEQ/L (21.0-32.0); CALCIUM 8.6 MG/DL (8.5-10.1); GLUCOSE,RANDOM 92 MG/DL (74-106); LIPASE 193 U/L (73-393)
[2017-02-21 20:35] VITALS: BP 146/87; PULSE 88; RESP 18; O2SAT 94
[2017-02-21 20:35] LABS: BLOOD UREA NITROGEN 5 MG/DL (7-18)
[2017-02-21 20:36] LABS: BILIRUBIN, URINE NEG (NEG); BLOOD, URINE NEG (NEG); GLUCOSE,URINE NEG (NEG); KETONE, URINE NEG (NEG); NITRITE,URINE NEG (NEG); PH, URINE 5.5 (5.0-8.5); URINE LEUKOCYTE ESTERASE NEG (NEG)
[2017-02-21 20:37] LABS: ALT (GPT) 82 U/L (12-78); AST (GOT) 86 U/L (15-37); CREATININE 0.77 MG/DL (0.60-1.30); GLOMERULAR FILTRATION RATE 106 ML/MIN (>89)
[2017-02-21 20:39] LABS: TOTAL BILIRUBIN ADULT 0.7 MG/DL (0.2-1.0); TOTAL PROTEIN 7.8 GM/DL (6.4-8.2)
[2017-02-21 20:40] LABS: ALKALINE PHOSPHATASE 85 U/L (45-117)
[2017-02-21 20:57] LABS: URINE COLOR STRAW (YELLW/STRAW)
[2017-02-21 20:58] LABS: SQUAMOUS EPITHELIAL CELL URINE 0-5 /hpf (0-5)
--- NOTE | 2017-02-21 21:22 | RADRPT ---
EXAM DATE/TIME: 02/21/2017 20:40 [facility] COMPARISON: CT ABDOMEN & PELVIS W/O CONTRAST, November 27, 2015, 19:16. INDICATIONS : Abdominal pain. ORAL CONTRAST: No oral contrast ingested. RADIATION DOSE: 6.68 CTDIvol (mGy) MEDICAL HISTORY : Hepatitis C. Gastroesophageal reflux disease. Hypertension.COPD. SURGICAL HISTORY : None. ENCOUNTER: Initial ACUITY: 2 days PAIN SCALE: 10/10 LOCATION: Right lower quadrant TECHNIQUE: Volumetric scanning of the abdomen and pelvis was performed. Using automated exposure control and ad justment of the mA and/or kV according to patient size, radiation dose was kept as low as reasonably achievable to obtain optimal diagnostic quality images. DICOM format image data is available electro nically for review and comparison. FINDINGS: LOWER LUNGS: There is suspected dependent atelectasis at the posterior lung bases. LIVER: There is diffuse decreased attenuation to the liver. No focal hepatic lesions are seen. SPLEEN: Normal size without lesion. PANCREAS: Within normal limits. KIDNEYS: There are faint tiny densities seen within the collecting system on the coronal images likely related to tiny 1-2 mm nonobstructing renal stones. Normal in size and shape. There is no mass or hydroneph rosis. ADRENAL GLANDS: Within normal limits. VASCULAR: There is no aortic aneurysm. There are scattered vascular calcifications. BOWEL/MESENTERY: The stomach, small bowel, and colon demonstrate no acute abnormality. There is no free intraperitone al air or fluid. ABDOMINAL WALL: Within normal limits. RETROPERITONEUM: There is no lymphadenopathy. BLADDER: No wall thickening or mass. REPRODUCTIVE: Within normal limits. INGUINAL: There is no lymphadenopathy or hernia. MUSCULOSKELETAL: There is degenerative change of the lower lumbar spine. There is an old healed right 11th rib fractur e. CONCLUSION: 1. Suspected tiny nonobstructing renal stones. 2. Hepatic steatosis. Hemant Hernandez MD on February 21, 2017 at 21:14 Board Certified Radiologist. This report was verified electronically.
[2017-02-21 21:35] VITALS: BP 138/81; PULSE 85; RESP 18; TEMP 98.7; O2SAT 95
[2017-02-21 21:59] VITALS: BP 140/87
== END 2017-02-21 22:05 | disposition home or self-care (01) ==
LOC: PHED 19:31
DX: R10.31 Right lower quadrant pain (principal); F10.129 Alcohol abuse with intoxication, unspecified; F17.200 Nicotine dependence, unspecified, uncomplicated; Y90.8 Blood alcohol level of 240 mg/100 ml or more; Z85.118 Personal history of other malignant neoplasm of bronchus and lung
CPT/HCPCS: 74176; 80053; 80307; 81001; 83605; 83690; 85025; 96361; 96374; 96375; 99285; J2270; J2405; J7030

== ENCOUNTER 2017-03-17 00:57 | Emergency (ER) | payer OTHER ==
[~2017-03-17] VITALS: Ht 182.9 cm; Wt 77.0 kg
[2017-03-17 01:03] VITALS: BP 137/85; PULSE 100; RESP 18; TEMP 97.9; O2SAT 95
[2017-03-17] MEDS ORDERED: ONDANSETRON HCL 4 MG/2 ML VIAL IVP ONE (01:30)
[2017-03-17] MEDS ORDERED: SODIUM CHLORIDE 0.9% FLUSH 10 ML FLUSH IV FLUSH PRN (01:30)
[2017-03-17] MEDS ORDERED: FAMOTIDINE 20 MG/2 ML VIAL IV PUSH ONE (01:30)
[2017-03-17] MEDS ORDERED: KETOROLAC TROMETHAMINE 30 MG/ML (IVP) VIAL IVP ONE (01:30)
--- NOTE | 2017-03-17 01:37 | PD ---
HPI Chief Complaint: Abdominal Pain Time Seen by Provider: 01:23 Travel History International Travel<30 days: No Contact w/Intl Traveler<30days: No Traveled to known affect area: No History of Present Illness HPI 51-year-old male complains of right low quadrant abdominal pain and right groin pain. Patient states that the pain started this evening. Patient states that the pain is sharp pain localized to right low quadrant of the abdomen and right groin area. Patient denies any pain radiation. Patient states that he has intermittent nausea vomiting with the pain. Patient denies any fever chills. Patient denies any dysuria or frequency. Patient denies any back pain. Patient denies any injury to the groin area. Patient was seen in emergency room on February 21, 2017 with right groin pain and right abdominal pain at that time. Workup including blood test urine tests and CT abdomen pelvis was negative for acute pathology. Patient states that the pain resolved completely however came back tonight. On a scale from 1-10 the pain is an 8. PFSH Past Medical History Hx Anticoagulant Therapy: No Arthritis: No Asthma: Yes Atrial Fibrillation: Yes Anxiety: Yes Depression: Yes Heart Rhythm Problems: Yes (irregular rhythm ) Cancer: Yes (STAGE IV LUNG CA) Cardiac Catheterization: No Cardiovascular Problems: Yes (HTN) High Cholesterol: No Chemotherapy: No Chest Pain: Yes Congestive Heart Failure: No COPD: Yes Diabetes: No Diminished Hearing: No Endocrine: No Gastrointestinal Disorders: Yes (GERD) GERD: Yes Genitourinary: No Hepatitis: Yes (HEP C) Hiatal Hernia: No Hypertension: Yes Immune Disorder: No Implanted Vascular Access Dvce: Yes Musculoskeletal: Yes Neurologic: No Psychiatric: Yes Reproductive: No Respiratory: Yes Immunizations Current: Yes Pneumonia: Yes Radiation Therapy: No Seizures: Yes (ETOH WITHDRAWAL) Sleep Apnea: No Thyroid Disease: No Ulcer: Yes ?: Not Past Surgical History Abdominal Surgery: No AICD: No Arteriovenous Shunt: No Body Medical Devices: SCREW IN LEFT WRIST Cardiac Surgery: No Ear Surgery: No Endocrine Surgery: No Eye Surgery: No Genitourinary Surgery: No Gynecologic Surgery: No Insulin Pump: No Joint Replacement: No Neurologic Surgery: No Oral Surgery: No Pacemaker: No Thoracic Surgery: Yes (BIOPSIES OF LT LUNG) Tonsillectomy: Yes Other Surgery: Yes Social History Alcohol Use: Yes (Daily, (3) 4 pack of 16oz beer ) Tobacco Use: Yes (/2 pack per day) Substance Use: Yes (Alcohol) Allergies-Medications (Allergen,Severity, Reaction): Coded Allergies: ipratropium (Verified Allergy, Severe, 03/17/17) lisinopril (Verified Allergy, Severe, Anaphylaxis, 03/17/17) penicillin G (Verified Adverse Reaction, Severe, WEAKNESS, "KNOCKS ME OUT ", 03/17/17) Reported Meds & Prescriptions Reported Meds & Active Scripts Active No Active Prescriptions or Reported Medications Review of Systems General / Constitutional: No: Fever Eyes: No: Visual changes HENT: No: Headaches Cardiovascular: No: Chest Pain or Discomfort Respiratory: No: Shortness of Breath Gastrointestinal: Positive: Abdominal Pain Genitourinary: No: Dysuria Musculoskeletal: No: Pain Skin: No Rash Neurologic: No: Weakness Psychiatric: No: Depression Endocrine: No: Polydipsia Hematologic/Lymphatic: No: Easy Bruising Physical Exam Narrative GENERAL: Well-nourished, well-developed patient. SKIN: Focused skin assessment warm/dry. HEAD: Normocephalic. EYES: No scleral icterus. No injection or drainage. NECK: Supple, trachea midline. No JVD or lymphadenopathy. CARDIOVASCULAR: Regular rate and rhythm without murmurs, gallops, or rubs. RESPIRATORY: Breath sounds equal bilaterally. No accessory muscle use. GASTROINTESTINAL: Abdomen soft, nondistended. Patient has mild tenderness on palpation right inguinal area. No rebound tenderness. No mass. No evidence of hernia. MUSCULOSKELETAL: No cyanosis, or edema. BACK: Nontender without obvious deformity. No CVA tenderness. exam: Patient has mild tenderness on palpation right pubic area. No mass noted. No evidence of hernia. No tenderness on palpation of the testicles. No scrotal swelling or tenderness. No lymphadenopathy noted. Full range of motion the right hip joint. Data Data Last Documented VS Vital Signs Date Time Temp Pulse Resp B/P (MAP) Pulse Ox O2 Delivery O2 Flow Rate FiO2 03/17/17 02:42 93 18 111/70 (84) 97 Room Air 03/17/17 01:03 97.9 Orders Orders Complete Blood Count With Diff (03/17/17 01:29) Comprehensive Metabolic Panel (03/17/17 01:29) Lipase (03/17/17 01:29) Urinalysis - C+S If Indicated (03/17/17 01:29) Ct Abd/Pel W Iv Contrast(Rout) (03/17/17 01:29) Iv Access Insert/Monitor (03/17/17 01:29) Ecg Monitoring (03/17/17 01:29) Oximetry (03/17/17 01:29) Ondansetron Inj (Zofran Inj) (03/17/17 01:30) Sodium Chloride 0.9% Flush (Ns Flush) (03/17/17 01:30) Famotidine Inj (Pepcid Inj) (03/17/17 01:30) Ketorolac Inj (Toradol Inj) (03/17/17 01:30) Iohexol 350 Inj (Omnipaque 350 Inj) (03/17/17 02:23) Ed Discharge Order (03/17/17 02:52) Labs Laboratory Tests Test 03/17/17 01:20 03/17/17 01:24 Urine Color YELLOW Urine Turbidity CLEAR Urine pH 6.0 Urine Specific [place] 1.004 Urine Protein NEG mg/dL Urine Glucose (UA) NEG mg/dL Urine Ketones NEG mg/dL Urine Occult Blood NEG Urine Nitrite NEG Urine Bilirubin NEG Urine Leukocyte Esterase NEG Urine Squamous Epithelial Cells 0-5 /hpf Microscopic Urinalysis Comment CULT NOT INDICATED White Blood Count 4.9 TH/MM3 Red Blood Count 4.70 MIL/MM3 Hemoglobin 14.8 GM/DL Hematocrit 46.0 % Mean Corpuscular Volume 97.9 FL Mean Corpuscular Hemoglobin 31.5 PG Mean Corpuscular Hemoglobin Concent 32.2 % Red Cell Distribution Width 13.5 % Platelet Count 151 TH/MM3 Mean Platelet Volume 7.8 FL Neutrophils (%) (Auto) 33.3 % Lymphocytes (%) (Auto) 46.9 % Monocytes (%) (Auto) 16.0 % Eosinophils (%) (Auto) 2.7 % Basophils (%) (Auto) 1.1 % Neutrophils # (Auto) 1.6 TH/MM3 Lymphocytes # (Auto) 2.3 TH/MM3 Monocytes # (Auto) 0.8 TH/MM3 Eosinophils # (Auto) 0.1 TH/MM3 Basophils # (Auto) 0.1 TH/MM3 CBC Comment DIFF FINAL Differential Comment Blood Urea Nitrogen 5 MG/DL Creatinine 0.81 MG/DL Random Glucose 87 MG/DL Total Protein 7.4 GM/DL Albumin 3.8 GM/DL Calcium Level 8.6 MG/DL Alkaline Phosphatase 79 U/L Aspartate Amino Transf (AST/SGOT) 95 U/L Alanine Aminotransferase (ALT/SGPT) 95 U/L Total Bilirubin 0.4 MG/DL Sodium Level 140 MEQ/L Potassium Level 4.2 MEQ/L Chloride Level 106 MEQ/L Carbon Dioxide Level 23.6 MEQ/L Anion Gap 10 MEQ/L Estimat Glomerular Filtration Rate 100 ML/MIN Lipase 419 U/L [facility] Medical Decision Making Medical Screen Exam Complete: Yes Emergency Medical Condition: Yes Interpretation(s) 2 38 AM. CBC within normal limit. WBC 4.9. 46 lymphocytes. 16 monos. CMP within normal limit. AST 95. ALT 95. Lipase 419. UA is negative. Differential Diagnosis Differential diagnosis including appendicitis, colitis, UTI, pyelonephritis, nephrolithiasis, musculoskeletal, lymphadenitis, inguinal hernia, epididymitis. Narrative Course 51-year-old male with right low abdominal pain, right groin pain and right pubic pain. Pepcid 20 mg IV. Toradol 30 mg IV. Zofran 4 mg IV. Diagnosis Primary Impression: Right groin pain Patient Instructions: General Instructions Additional Instructions: Take medication as directed. Follow-up with personal physician. Return if worse. Med/Other Pt SpecificInfo: Prescription(s) given Scripts Ibuprofen (Ibuprofen) 600 Mg Tab 600 MG PO TID for Pain, #30 TAB 0 Refills Prov: Missael Conn MD 03/17/17 Doxycycline Hyclate (Doxycycline Hyclate) 100 Mg Cap 100 MG PO BID for Infection, #20 CAP 0 Refills Prov: Missael Conn MD 03/17/17 Disposition: 01 DISCHARGE HOME Condition: Stable Missael Conn MD Mar 17, 2017 01:37
[2017-03-17 01:40] VITALS: O2SAT 95
[2017-03-17 01:44] LABS: AUTOMATED NEUTROPHIL # 1.6 TH/MM3 (1.8-7.7); BASOPHIL # 0.1 TH/MM3 (0-0.2); BASOPHIL % 1.1 % (0.0-2.0); EOSINOPHIL # 0.1 TH/MM3 (0-0.4); EOSINOPHIL % 2.7 % (0.0-4.0); HEMOGLOBIN 14.8 GM/DL (13.0-17.0); LYMPH % 46.9 % (9.0-44.0); LYMPHOCYTE # 2.3 TH/MM3 (1.0-4.8); MEAN CELL VOLUME 97.9 FL (80.0-100.0); MEAN CORPUSCULAR HEMOGLOBIN 31.5 PG (27.0-34.0); MEAN CORPUSCULAR HGB CONC 32.2 % (32.0-36.0); MEAN PLATELET VOLUME 7.8 FL (7.0-11.0); MONOCYTE # 0.8 TH/MM3 (0-0.9); NEUT % 33.3 % (16.0-70.0); PLATELET COUNT 151 TH/MM3 (150-450); RED CELL DISTRIBUTION WIDTH 13.5 % (11.6-17.2); WHITE BLOOD COUNT 4.9 TH/MM3 (4.0-11.0)
[2017-03-17 01:44] LABS: BILIRUBIN, URINE NEG (NEG); BLOOD, URINE NEG (NEG); GLUCOSE,URINE NEG (NEG); KETONE, URINE NEG (NEG); NITRITE,URINE NEG (NEG); URINE LEUKOCYTE ESTERASE NEG (NEG)
[2017-03-17 01:56] LABS: CHLORIDE 106 MEQ/L (98-107); SODIUM (NA) 140 MEQ/L (136-145)
[2017-03-17 01:58] LABS: SQUAMOUS EPITHELIAL CELL URINE 0-5 /hpf (0-5); URINE COLOR YELLOW (YELLW/STRAW)
[2017-03-17 01:59] LABS: CALCIUM 8.6 MG/DL (8.5-10.1)
[2017-03-17 02:00] LABS: ALBUMIN 3.8 GM/DL (3.4-5.0); BICARBONATE 23.6 MEQ/L (21.0-32.0); BLOOD UREA NITROGEN 5 MG/DL (7-18); GLUCOSE,RANDOM 87 MG/DL (74-106); LIPASE 419 U/L (73-393)
[2017-03-17 02:03] LABS: ALT (GPT) 95 U/L (12-78); AST (GOT) 95 U/L (15-37); CREATININE 0.81 MG/DL (0.60-1.30); GLOMERULAR FILTRATION RATE 100 ML/MIN (>89)
[2017-03-17 02:04] LABS: TOTAL BILIRUBIN ADULT 0.4 MG/DL (0.2-1.0); TOTAL PROTEIN 7.4 GM/DL (6.4-8.2)
[2017-03-17 02:05] LABS: ALKALINE PHOSPHATASE 79 U/L (45-117)
[2017-03-17] MEDS ORDERED: IOHEXOL 350 MG/ML 10 ML VIAL (for RAD DIAG) IVCONTRAST ONE (02:23)
[2017-03-17 02:42] VITALS: BP 111/70; PULSE 93; RESP 18; O2SAT 97
--- NOTE | 2017-03-17 02:51 | RADRPT ---
EXAM DATE/TIME: 03/17/2017 02:09 [facility] COMPARISON: No previous studies available for comparison. INDICATIONS : Right lower quadrant and groin pain. IV CONTRAST: 100 cc Omnipaque 350 (iohexol) IV ORAL CONTRAST: No oral contrast ingested. RADIATION DOSE: 7.06 CTDIvol (mGy) MEDICAL HISTORY : Gastroesophageal reflux disease. Chronic obstructive pulmonary disease. Hypertension. SURGICAL HISTORY : None. ENCOUNTER: Initial ACUITY: 2 days PAIN SCALE: 10/10 LOCATION: Right lower quadrant TECHNIQUE: Volumetric scanning of the abdomen and pelvis was performed. Using automated exposure control and ad justment of the mA and/or kV according to patient size, radiation dose was kept as low as reasonably achievable to obtain optimal diagnostic quality images. DICOM format image data is available electro nically for review and comparison. FINDINGS: There is subsegmental atelectasis in the right base. There is decreased density of the liver with res pect to the spleen compatible with fatty infiltration. The spleen is unremarkable. The gallbladder an d pancreas are unremarkable. No intrahepatic or extrahepatic ductal dilatation is seen. The adrenal g lands and kidneys appear normal bilaterally. No hydronephrosis or mass lesions are identified. Examin ation of the right lower quadrant demonstrates no abnormality. The appendix is identified and appears normal. Examination of the pelvis demonstrates no evidence of free fluid or pelvic mass. No abnormally enlarg ed inguinal or retroperitoneal lymph nodes are present. The bladder is unremarkable. CONCLUSION: 1. No evidence of acute abdominal or pelvic process. No masses are identified. 2. Hypodense liver compatible with fatty infiltration or hepatocellular disease. Brown Dunham MD on March 17, 2017 at 2:42 Board Certified Radiologist. This report was verified electronically.
[2017-03-17] MEDS ORDERED: DOXY100C PO (02:54)
[2017-03-17] MEDS ORDERED: IBUP-232 PO (02:54)
[2017-03-17 03:07] VITALS: BP 112/77
== END 2017-03-17 03:17 | disposition home or self-care (01) ==
LOC: PHED 00:57
DX: R10.31 Right lower quadrant pain (principal); F17.200 Nicotine dependence, unspecified, uncomplicated
CPT/HCPCS: 74177; 80053; 81001; 83690; 85025; 96374; 96375; 99285; J1885; J2405; Q9967

== ENCOUNTER 2017-03-19 00:23 | Emergency (ER) | payer OTHER ==
[~2017-03-19] VITALS: Ht 182.9 cm; Wt 80.0 kg
[~2017-03-19 00:23] MED LIST changes: -ALBU0.08 NEB; -ALBUAER3 INH; +DOXY100C PO; +IBUP-232 PO; -IPRAAER INH
--- NOTE | 2017-03-19 01:31 | PD ---
HPI Chief Complaint: Back/ Neck Pain or Injury Time Seen by Provider: 01:18 Travel History International Travel<30 days: No Contact w/Intl Traveler<30days: No Traveled to known affect area: No History of Present Illness HPI 51-year-old white male presents to emergency department under Hartmann act requesting evaluation of anxiety and constant depressive thoughts. He states that he always thinks the worst. He denies any suicidal or homicidal ideation. He states that he just can't get these thoughts out of his head. He will like to get help. He admits to a history of alcohol abuse. He's been to [employer] [facility] in the past. He does not want to stop drinking at this time. He does smoke cigarettes. He does smoke marijuana on occasion. No other drugs. Symptoms are moderate. No alleviating factors. Exacerbated by alcohol PFSH Past Medical History Hx Anticoagulant Therapy: No Arthritis: No Asthma: Yes Atrial Fibrillation: Yes Anxiety: Yes Depression: Yes Heart Rhythm Problems: Yes (irregular rhythm ) Cancer: Yes (STAGE IV LUNG CA) Cardiac Catheterization: No Cardiovascular Problems: Yes (HTN) High Cholesterol: No Chemotherapy: No Chest Pain: Yes Congestive Heart Failure: No COPD: Yes Diabetes: No Diminished Hearing: No Endocrine: No Gastrointestinal Disorders: Yes (GERD) GERD: Yes Genitourinary: No Hepatitis: Yes (HEP C) Hiatal Hernia: No Hypertension: Yes Immune Disorder: No Implanted Vascular Access Dvce: Yes Musculoskeletal: Yes Neurologic: No Psychiatric: Yes Reproductive: No Respiratory: Yes Immunizations Current: Yes Pneumonia: Yes Radiation Therapy: No Seizures: Yes (ETOH WITHDRAWAL) Sleep Apnea: No Thyroid Disease: No Ulcer: Yes Past Surgical History Abdominal Surgery: No AICD: No Arteriovenous Shunt: No Body Medical Devices: SCREW IN LEFT WRIST Cardiac Surgery: No Ear Surgery: No Endocrine Surgery: No Eye Surgery: No Genitourinary Surgery: No Gynecologic Surgery: No Insulin Pump: No Joint Replacement: No Neurologic Surgery: No Oral Surgery: No Pacemaker: No Thoracic Surgery: Yes (BIOPSIES OF LT LUNG) Tonsillectomy: Yes Other Surgery: Yes Social History Alcohol Use: Yes (Daily, (3) 4 pack of 16oz beer ) Tobacco Use: Yes (1/2 pack per day) Substance Use: Yes (Alcohol) Allergies-Medications (Allergen,Severity, Reaction): Coded Allergies: ipratropium (Verified Allergy, Severe, 03/19/17) lisinopril (Verified Allergy, Severe, Anaphylaxis, 03/19/17) penicillin G (Verified Adverse Reaction, Severe, WEAKNESS, "KNOCKS ME OUT ", 03/19/17) Reported Meds & Prescriptions Reported Meds & Active Scripts Active Reported Ventolin Hfa 18 GM Inh (Albuterol Sulfate) 90 Mcg/Act Aer 2 Puff INH Q4-6H PRN Albuterol Neb (Albuterol Sulfate) 2.5 Mg/3 Ml Neb 2.5 Mg NEB QID NEB Review of Systems Except as stated in HPI: all other systems reviewed are Neg Physical Exam Narrative GENERAL: This is a well-nourished, well-developed patient, in no apparent distress. SKIN: No rashes, ecchymoses or lesions. Warm and dry. HEAD: Atraumatic. Normocephalic. EYES: PERRL, EOMI, no discharge or injection. No scleral icterus. EARS: Clear NOSE: Nasal turbinates appear normal. THROAT: Mucosa pink and moist. Airway patent. NECK: Trachea midline. supple, moves head freely. LUNGS: Clear to auscultation. CV: Regular in rhythm. ABDOMEN: Soft nontender. EXT: No clubbing cyanosis or edema. Data Data Last Documented VS Vital Signs Date Time Temp Pulse Resp B/P (MAP) Pulse Ox O2 Delivery O2 Flow Rate FiO2 03/19/17 01:33 20 Orders Orders Psych Screen (03/19/17 02:16) Alcohol (Ethanol) (03/19/17 02:16) MDM Medical Decision Making Medical Screen Exam Complete: Yes Emergency Medical Condition: Yes Medical Record Reviewed: Yes Differential Diagnosis MDM: High Differential diagnoses: Schizophrenia, schizoaffective disorder, bipolar, anxiety, depression, adjustment reaction, mood disorder NOS, ODD, depressive disorder NOS, dementia, dementia with agitation, psychosis NOS, substance induced mood disorder, DMDD, Asperger syndrome, infection,electrolyte abnormality, malingering. Narrative Course The patient has been medically cleared This is medical clearance for psychiatric admission Diagnosis Primary Impression: Medical clearance for psychiatric admission Condition: Garret Pierson Mar 19, 2017 01:31
[2017-03-19] MEDS ORDERED: ALBU0.08 NEB (01:32)
[2017-03-19] MEDS ORDERED: VENTAER INH (01:32)
[2017-03-19 07:31] VITALS: BP 124/89; PULSE 86; RESP 16; TEMP 98.2; O2SAT 95
[2017-03-19 11:14] VITALS: BP 130/86; PULSE 80; RESP 16; TEMP 98.2; O2SAT 95
[2017-03-19] MEDS ORDERED: ONDANSETRON ODT 4 MG TAB PO ONE (11:45)
[2017-03-19] MEDS ORDERED: chlordiazePOXIDE 25 MG CAP PO ONE (13:00)
[2017-03-19] MEDS ORDERED: CHLO25CA9 PO (13:04)
--- NOTE | 2017-03-19 13:05 | PD ---
Physical Exam Narrative GENERAL: poorly groomed male SKIN: Warm and dry. HEAD: Atraumatic. Normocephalic. EYES: Pupils equal and round. No scleral icterus. No injection or drainage. ENT: No nasal bleeding or discharge. Mucous membranes pink and moist. NECK: Trachea midline. No JVD. CARDIOVASCULAR: Regular rate and rhythm. RESPIRATORY: No accessory muscle use. Clear to auscultation. Breath sounds equal bilaterally. GASTROINTESTINAL: Abdomen soft, non-tender, nondistended. Hepatic and splenic margins not palpable. MUSCULOSKELETAL: Extremities without clubbing, cyanosis, or edema. No obvious deformities. NEUROLOGICAL: Awake and alert. No obvious cranial nerve deficits. Motor grossly within normal limits. Five out of 5 muscle strength in the arms and legs. Normal speech. mild tremors resolved with librium given earlier PSYCHIATRIC: Appropriate mood and affect; insight and judgment normal. Data Data Last Documented VS Vital Signs Date Time Temp Pulse Resp B/P (MAP) Pulse Ox O2 Delivery O2 Flow Rate FiO2 03/19/17 11:14 80 16 130/86 (101) 95 Room Air Orders Orders Psych Screen (03/19/17 02:16) Alcohol (Ethanol) (03/19/17 02:16) Drug Screen, Random Urine (03/19/17 06:01) Diet Regular Basic (03/19/17 Breakfast) Ondansetron Odt (Zofran Odt) (03/19/17 11:45) Chlordiazepoxide (Librium) (03/19/17 13:00) Labs Laboratory Tests Test 03/19/17 02:30 03/19/17 06:00 Ethyl Alcohol Level 276 MG/DL Urine Opiates Screen NEG Urine Barbiturates Screen NEG Urine Amphetamines Screen NEG Urine Benzodiazepines Screen NEG Urine Cocaine Screen NEG Urine Cannabinoids Screen POS MDM Medical Record Reviewed: Yes Supervised Visit with DENNIS: Yes Differential Diagnosis n/a Narrative Course patient was seen by dr virk and psych screener, who lifted [facility] and arranged follow up with [facility] for detox. patient has sgined contract and denies active si/hi Diagnosis Primary Impression: Medical clearance for psychiatric admission [facility] Patient Instructions: General Instructions Additional Instruction: Rest. DO NOT DRINK ALCOHOL AND TAKE LIBRIUM PRESCRIPTION AT SAME TIME Follow-up with the recommendations of the psych screener. Follow-up with [facility]. Scripts Chlordiazepoxide HCl (Chlordiazepoxide HCl) 25 Mg Capsule 25 MG PO Q6HR, #28 CAP Prov: Aleksandar Mayer MD 03/19/17 Disposition: 01 DISCHARGE HOME Condition: Stable Aleksandar Mayer MD Mar 19, 2017 13:04
--- NOTE | 2017-03-19 13:40 | PD ---
History of Present Illness Chief Complaint: Back/ Neck Pain or Injury Time Seen by Provider: 13:30 Travel History International Travel<30 Days: No Contact w/Intl Traveler<30days: No Known affected area: No Legal Status Legal Status: Hartmann Act Hartmann Act Signed By: Kristy Wong History of Present Illness: 51-year-old male brought in under a Hartmann act initiated by [employer] [place] [employer]. According to the Hartmann act the patient was depressed due to stage IV lung cancer and did not want to live. Patient was noted to be positive for cannabinoids and had a high alcohol level. He admits to drinking alcoholically and states he is willing to go to [facility] voluntarily. He denies any suicidal or homicidal ideation, plan or intent at this time. He is verbally wolfgang for safety. He has no psychotic symptoms and his cognition is intact. He is verbally wolfgang for safety and he is competent to do so. PFSH Past Medical History Hx Anticoagulant Therapy: No Arthritis: No Asthma: Yes Atrial Fibrillation: Yes Anxiety: Yes Depression: Yes Heart Rhythm Problems: Yes (irregular rhythm ) Cancer: Yes (STAGE IV LUNG CA) Cardiac Catheterization: No Cardiovascular Problems: Yes (HTN) High Cholesterol: No Chemotherapy: No Chest Pain: Yes Congestive Heart Failure: No COPD: Yes Diabetes: No Diminished Hearing: No Endocrine: No Gastrointestinal Disorders: Yes (GERD) GERD: Yes Genitourinary: No Hepatitis: Yes (HEP C) Hiatal Hernia: No Hypertension: Yes Immune Disorder: No Implanted Vascular Access Dvce: Yes Musculoskeletal: Yes Neurologic: No Psychiatric: Yes Reproductive: No Respiratory: Yes Immunizations Current: Yes Pneumonia: Yes Radiation Therapy: No Seizures: Yes (ETOH WITHDRAWAL) Sleep Apnea: No Thyroid Disease: No Ulcer: Yes Past Surgical History Abdominal Surgery: No AICD: No Arteriovenous Shunt: No Body Medical Devices: SCREW IN LEFT WRIST Cardiac Surgery: No Ear Surgery: No Endocrine Surgery: No Eye Surgery: No Genitourinary Surgery: No Gynecologic Surgery: No Insulin Pump: No Joint Replacement: No Neurologic Surgery: No Oral Surgery: No Pacemaker: No Thoracic Surgery: Yes (BIOPSIES OF LT LUNG) Tonsillectomy: Yes Other Surgery: Yes Psychiatric History Psychiatric History Hx Psychiatric Treatment: Hx of depression and anxiety. Last [facility] admission on [address] [facility] September 15-2015 for drug induced mood disorder. History of Inpatient Treatment: No Guns or firearms in home: No Social History Hx Alcohol Use: Yes (Daily, (3) 4 pack of 16oz beer ) Hx Tobacco Use: Yes (1/2 pack per day) Hx Substance Use: Yes Substance Use Type: Alcohol Hx of Substance Use Treatment: Yes Allergies-Medications (Allergen,Severity, Reaction): Coded Allergies: ipratropium (Verified Allergy, Severe, 03/19/17) lisinopril (Verified Allergy, Severe, Anaphylaxis, 03/19/17) penicillin G (Verified Adverse Reaction, Severe, WEAKNESS, "KNOCKS ME OUT ", 03/19/17) Reported Meds & Prescriptions Reported Meds & Active Scripts Active Chlordiazepoxide HCl 25 Mg Capsule 25 Mg PO Q6HR Reported Ventolin Hfa 18 GM Inh (Albuterol Sulfate) 90 Mcg/Act Aer 2 Puff INH Q4-6H PRN Albuterol Neb (Albuterol Sulfate) 2.5 Mg/3 Ml Neb 2.5 Mg NEB QID NEB Review of Systems Psychiatric: COMPLAINS OF: Anxiety Except as stated in HPI: all other systems reviewed are Neg Mental Status Examination Appearance: Appropriate Consciousness: Alert Orientation: x4 Motor Activity: Normal gait Speech: Unremarkable Language: Adequate Fund of Knowledge: Adequate Attention and Concentration: Adequate Memory: Unremarkable Mood: Anxious Affect: Anxious Thought Process & Associations: Intact Thought Content: Appropriate Hallucination Type: None Delusion Type: None Suicidal Ideation: No Suicidal Plan: No Suicidal Intention: No Homicidal Ideation: No Homicidal Plan: No Homicidal Intention: No Insight: Adequate Judgment: Adequate [facility] Medical Decision Making Medical Record Reviewed: Yes Assessment/Plan Patient interviewed at bedside. Electronic medical record reviewed. Case discussed with nurse Cuevas. Patient does not meet criteria for Hartmann act or involuntary psychiatric hospitalization. He wants to go home and states he will go to [facility] tomorrow. He is competent to make medical decisions. Orders Orders Psych Screen (03/19/17 02:16) Alcohol (Ethanol) (03/19/17 02:16) Drug Screen, Random Urine (03/19/17 06:01) Diet Regular Basic (03/19/17 Breakfast) Ondansetron Odt (Zofran Odt) (03/19/17 11:45) Chlordiazepoxide (Librium) (03/19/17 13:00) Ed Discharge Order (03/19/17 13:05) Results Vital Signs Date Time Temp Pulse Resp B/P (MAP) Pulse Ox O2 Delivery O2 Flow Rate FiO2 03/19/17 11:14 80 16 130/86 (101) 95 Room Air 03/19/17 07:31 98.2 86 16 124/89 (101) 95 Room Air 03/19/17 01:33 20 Laboratory Tests Test 03/19/17 02:30 03/19/17 06:00 Ethyl Alcohol Level 276 Urine Opiates Screen NEG Urine Barbiturates Screen NEG Urine Amphetamines Screen NEG Urine Benzodiazepines Screen NEG Urine Cocaine Screen NEG Urine Cannabinoids Screen POS Diagnosis Primary Impression: Alcohol abuse Referrals: [facility] Forms: Tests/Procedures Patient Instructions: General Instructions Additional Instructions: Rest. DO NOT DRINK ALCOHOL AND TAKE LIBRIUM PRESCRIPTION AT SAME TIME Follow-up with the recommendations of the psych screener. Follow-up with [facility]. Prescriptions Chlordiazepoxide HCl (Chlordiazepoxide HCl) 25 Mg Capsule 25 MG PO Q6HR, #28 CAP Prov: Aleksandar Mayer MD 03/19/17 Disposition: 01 DISCHARGE HOME Condition: Stable Ori Sanford MD Mar 19, 2017 13:40
== END 2017-03-19 14:01 | disposition home or self-care (01) ==
LOC: NEPD 00:23
DX: C34.90 Malignant neoplasm of unspecified part of unspecified bronchus or lung (principal); F32.9 Major depressive disorder, single episode, unspecified; F41.9 Anxiety disorder, unspecified; F10.10 Alcohol abuse, uncomplicated; F17.210 Nicotine dependence, cigarettes, uncomplicated; F12.90 Cannabis use, unspecified, uncomplicated; J44.9 Chronic obstructive pulmonary disease, unspecified; Y90.8 Blood alcohol level of 240 mg/100 ml or more; Z79.899 Other long term (current) drug therapy
CPT/HCPCS: 80307; 99284

== ENCOUNTER 2017-03-30 01:49 | Emergency (ER) | payer OTHER ==
[~2017-03-30] VITALS: Ht 185.4 cm; Wt 80.0 kg
[~2017-03-30 01:49] MED LIST changes: +ALBU0.08 NEB; +CHLO25CA9 PO; -DOXY100C PO; -IBUP-232 PO; +VENTAER INH
[2017-03-30 01:55] VITALS: BP 101/85; PULSE 96; RESP 20; TEMP 98.2
[2017-03-30 03:19] VITALS: BP 109/64; PULSE 103; RESP 18; O2SAT 95
[2017-03-30] MEDS ORDERED: KETO10 PO (03:46)
--- NOTE | 2017-03-30 03:46 | PD ---
HPI Chief Complaint: Pain: Acute or Chronic Time Seen by Provider: 01:56 Travel History International Travel<30 days: No Contact w/Intl Traveler<30days: No Traveled to known affect area: No History of Present Illness HPI PATIENT HAS HAD A LUMP TO RIGHT GROIN AREA FOR ALMOST 2 MONTHS, MORE FREQUENTLY BOTHERING HIM OVER LAST FEW DAYS....WAS SEEN PREVIOUSLY AND HAD A CT ABDPELVIS DONE. PFSH Past Medical History Hx Anticoagulant Therapy: No Arthritis: No Asthma: Yes Atrial Fibrillation: Yes Anxiety: Yes Depression: Yes Heart Rhythm Problems: Yes (irregular rhythm ) Cancer: Yes (STAGE IV LUNG CA) Cardiac Catheterization: No Cardiovascular Problems: Yes (HTN) High Cholesterol: No Chemotherapy: No Chest Pain: Yes Congestive Heart Failure: No COPD: Yes Diabetes: No Diminished Hearing: No Endocrine: No Gastrointestinal Disorders: Yes (GERD) GERD: Yes Genitourinary: No Hepatitis: Yes (HEP C) Hiatal Hernia: No Hypertension: Yes Immune Disorder: No Implanted Vascular Access Dvce: Yes Musculoskeletal: Yes Neurologic: No Psychiatric: Yes Reproductive: No Respiratory: Yes Immunizations Current: Yes Pneumonia: Yes Radiation Therapy: No Seizures: Yes (ETOH WITHDRAWAL) Sleep Apnea: No Thyroid Disease: No Ulcer: Yes Past Surgical History Abdominal Surgery: No AICD: No Arteriovenous Shunt: No Body Medical Devices: SCREW IN LEFT WRIST Cardiac Surgery: No Ear Surgery: No Endocrine Surgery: No Eye Surgery: No Genitourinary Surgery: No Gynecologic Surgery: No Insulin Pump: No Joint Replacement: No Neurologic Surgery: No Oral Surgery: No Pacemaker: No Thoracic Surgery: Yes (BIOPSIES OF LT LUNG) Tonsillectomy: Yes Other Surgery: Yes Social History Alcohol Use: Yes (Daily, (3) 4 pack of 16oz beer ) Tobacco Use: Yes (1/2 pack per day) Substance Use: No Allergies-Medications (Allergen,Severity, Reaction): Coded Allergies: ipratropium (Verified Allergy, Severe, 03/30/17) lisinopril (Verified Allergy, Severe, Anaphylaxis, 03/30/17) penicillin G (Verified Adverse Reaction, Severe, WEAKNESS, "KNOCKS ME OUT ", 03/30/17) Reported Meds & Prescriptions Reported Meds & Active Scripts Active Chlordiazepoxide HCl 25 Mg Capsule 25 Mg PO Q6HR Reported Ventolin Hfa 18 GM Inh (Albuterol Sulfate) 90 Mcg/Act Aer 2 Puff INH Q4-6H PRN Albuterol Neb (Albuterol Sulfate) 2.5 Mg/3 Ml Neb 2.5 Mg NEB QID NEB Review of Systems Except as stated in HPI: all other systems reviewed are Neg General / Constitutional: No: Fever Eyes: No: Visual changes HENT: No: Headaches Cardiovascular: No: Chest Pain or Discomfort Respiratory: No: Shortness of Breath Gastrointestinal: No: Abdominal Pain Genitourinary: No: Dysuria Musculoskeletal: No: Pain Skin: Positive Lumps (TO RIGHT GROIN AREA) Neurologic: No: Weakness Psychiatric: No: Depression Endocrine: No: Polydipsia Hematologic/Lymphatic: No: Easy Bruising Physical Exam Narrative GENERAL: SKIN: Warm and dry. HEAD: Atraumatic. Normocephalic. EYES: Pupils equal and round. No scleral icterus. No injection or drainage. ENT: No nasal bleeding or discharge. Mucous membranes pink and moist. NECK: Trachea midline. No JVD. CARDIOVASCULAR: Regular rate and rhythm. RESPIRATORY: No accessory muscle use. Clear to auscultation. Breath sounds equal bilaterally. GASTROINTESTINAL: Abdomen soft, non-tender, nondistended. RT INGUINAL LUMP WHICH IS REDUCIBLE MANUALLY MUSCULOSKELETAL: Extremities without clubbing, cyanosis, or edema. No obvious deformities. NEUROLOGICAL: Awake and alert. No obvious cranial nerve deficits. Motor grossly within normal limits. Five out of 5 muscle strength in the arms and legs. Normal speech. PSYCHIATRIC: Appropriate mood and affect; insight and judgment normal. Data Data Last Documented VS Vital Signs Date Time Temp Pulse Resp B/P (MAP) Pulse Ox O2 Delivery O2 Flow Rate FiO2 03/30/17 03:19 103 18 109/64 (79) 95 Room Air 03/30/17 01:55 98.2 [facility] Medical Decision Making Medical Screen Exam Complete: Yes Emergency Medical Condition: Yes Medical Record Reviewed: Yes Differential Diagnosis INGUINAL HERNIA V LAD Narrative Course ON CT ABD/PELVIS NEG FOR SBO/ILEUS/ Diagnosis Primary Impression: Reducible right inguinal hernia Patient Instructions: General Instructions, Inguinal Hernia (ED) Scripts Ketorolac (Ketorolac) 10 Mg Tab 10 MG PO TID for Pain Management, #10 TAB 0 Refills Prov: Aleksandar Mayer MD 03/30/17 Disposition: 01 DISCHARGE HOME Condition: Stable Aleksandar Mayer MD Mar 30, 2017 03:46
[2017-03-30 03:55] VITALS: BP 114/80
== END 2017-03-30 03:59 | disposition home or self-care (01) ==
LOC: PHED 01:49
DX: K40.90 Unilateral inguinal hernia, without obstruction or gangrene, not specified as recurrent (principal); F17.200 Nicotine dependence, unspecified, uncomplicated
CPT/HCPCS: 99284

== ENCOUNTER 2017-04-12 04:36 | Emergency (ER) | payer OTHER ==
[~2017-04-12] VITALS: Ht 185.4 cm; Wt 72.5 kg
[~2017-04-12 04:36] MED LIST changes: +KETO10 PO
[2017-04-12 04:40] VITALS: BP 139/87; PULSE 85; RESP 16; TEMP 98.8; O2SAT 96
[2017-04-12] MEDS ORDERED: methylPREDNISolone SOD SUCC 125 MG/2 ML VIAL IV PUSH ONE (04:45)
[2017-04-12] MEDS ORDERED: SODIUM CHLORIDE 0.9% FLUSH 10 ML FLUSH IVF PRN (04:45)
--- NOTE | 2017-04-12 04:50 | PD ---
HPI Chief Complaint: Respiratory Symptoms Time Seen by Provider: 04:40 Travel History International Travel<30 days: No Contact w/Intl Traveler<30days: No Traveled to known affect area: No History of Present Illness HPI The patient is a 51-year-old male, frequent visitor to emergency department, who complains of shortness of breath and wheezing. The patient abuses both alcohol and tobacco. He smokes about one pack a day and virtually always comes in drunk because of drinking beer. He states he is not allergic to ipratropium and does not know how that came about that this was written as an allergy. Patient states he wants some Librium. The patient has had dual nebs in the past without a problem. PFSH Past Medical History Hx Anticoagulant Therapy: No Arthritis: No Asthma: Yes Atrial Fibrillation: Yes Anxiety: Yes Depression: Yes Heart Rhythm Problems: Yes (irregular rhythm ) Cancer: Yes (STAGE IV LUNG CA) Cardiac Catheterization: No Cardiovascular Problems: Yes (HTN) High Cholesterol: No Chemotherapy: No Chest Pain: Yes Congestive Heart Failure: No COPD: Yes Diabetes: No Diminished Hearing: No Endocrine: No Gastrointestinal Disorders: Yes (GERD) GERD: Yes Genitourinary: No Hepatitis: Yes (HEP C) Hiatal Hernia: No Hypertension: Yes Immune Disorder: No Implanted Vascular Access Dvce: Yes Musculoskeletal: Yes Neurologic: No Psychiatric: Yes Reproductive: No Respiratory: Yes Immunizations Current: Yes Pneumonia: Yes Radiation Therapy: No Seizures: Yes (ETOH WITHDRAWAL) Sleep Apnea: No Thyroid Disease: No Ulcer: Yes Past Surgical History Abdominal Surgery: No AICD: No Arteriovenous Shunt: No Body Medical Devices: SCREW IN LEFT WRIST Cardiac Surgery: No Ear Surgery: No Endocrine Surgery: No Eye Surgery: No Genitourinary Surgery: No Gynecologic Surgery: No Insulin Pump: No Joint Replacement: No Neurologic Surgery: No Oral Surgery: No Pacemaker: No Thoracic Surgery: Yes (BIOPSIES OF LT LUNG) Tonsillectomy: Yes Other Surgery: Yes Social History Alcohol Use: Yes (Daily, (3) 4 pack of 16oz beer ) Tobacco Use: Yes (1/2 pack per day) Substance Use: No Allergies-Medications (Allergen,Severity, Reaction): Coded Allergies: ipratropium (Verified Allergy, Severe, 04/12/17) lisinopril (Verified Allergy, Severe, Anaphylaxis, 04/12/17) penicillin G (Verified Adverse Reaction, Severe, WEAKNESS, "KNOCKS ME OUT ", 04/12/17) Reported Meds & Prescriptions Reported Meds & Active Scripts Active Ketorolac (Ketorolac Tromethamine) 10 Mg Tab 10 Mg PO TID Chlordiazepoxide HCl 25 Mg Capsule 25 Mg PO Q6HR Reported Ventolin Hfa 18 GM Inh (Albuterol Sulfate) 90 Mcg/Act Aer 2 Puff INH Q4-6H PRN Albuterol Neb (Albuterol Sulfate) 2.5 Mg/3 Ml Neb 2.5 Mg NEB QID NEB Review of Systems Except as stated in HPI: all other systems reviewed are Neg Physical Exam Narrative GENERAL: The patient is alert, oriented 3 in slight respiratory distress. His vital signs are normal. Oximetry on room air is 97%. SKIN: Focused skin assessment warm/dry. No skin rash is present. HEAD: Atraumatic. Normocephalic. EYES: Pupils equal and round. No scleral icterus. No injection or drainage. ENT: No nasal bleeding or discharge. Mucous membranes pink and moist. NECK: Trachea midline. No JVD. CARDIOVASCULAR: Regular rate and rhythm. No murmur appreciated. RESPIRATORY: No accessory muscle use. . Breath sounds equal bilaterally. GASTROINTESTINAL: Abdomen soft, non-tender, nondistended. Hepatic and splenic margins not palpable. MUSCULOSKELETAL: No obvious deformities. No clubbing. No cyanosis. No edema. NEUROLOGICAL: Awake and alert. No obvious cranial nerve deficits. Motor grossly within normal limits. Normal speech. PSYCHIATRIC: Appropriate mood and affect; insight and judgment normal. Data Data Last Documented VS Vital Signs Date Time Temp Pulse Resp B/P (MAP) Pulse Ox O2 Delivery O2 Flow Rate FiO2 04/12/17 04:45 97 16 97 04/12/17 04:40 98.8 139/87 (104) Orders Orders Influenzae A/B Antigen (04/12/17 04:40) Iv Access Insert/Monitor (04/12/17 04:40) Ecg Monitoring (04/12/17 04:40) Oximetry (04/12/17 04:40) Oxygen Administration (04/12/17 04:40) Sodium Chloride 0.9% Flush (Ns Flush) (04/12/17 04:45) Methylprednisolone So Succ Inj (Solumedr (04/12/17 04:45) Albuterol-Ipratropium Neb (Duoneb Neb) (04/12/17 04:45) Alcohol (Ethanol) (04/12/17 04:43) Thiamine Inj (Thiamine Inj) (04/12/17 05:30) Potassium Chloride (Kcl) (04/12/17 05:30) Ns + Kcl 40 Meq Inj (Ns + Kcl 40 Meq Inj (04/12/17 05:30) Complete Blood Count With Diff (04/12/17 05:45) Comprehensive Metabolic Panel (04/12/17 05:45) Labs Laboratory Tests Test 04/12/17 04:30 Ethyl Alcohol Level 312 MG/DL [facility] Medical Decision Making Medical Screen Exam Complete: Yes Emergency Medical Condition: Yes Medical Record Reviewed: Yes Interpretation(s) The influenza A/B antigen is negative for flu a and flu B antigen. The alcohol level is 312. Differential Diagnosis COPD with acute exacerbation, alcohol abuse, alcohol intoxication, flu syndrome , nonspecific viral syndrome, pneumonia- Narrative Course It is now 0630 and the patient feels much better and wants to go home. Impression is COPD with acute exacerbation and alcohol intoxication/abuse. Diagnosis Primary Impression: COPD with acute exacerbation Additional Impressions: Alcohol dependence with acute alcoholic intoxication Tobacco abuse Additional Instructions: Discontinue alcohol. Discontinue smoking. Follow up with her primary care physician this week. Disposition: 01 DISCHARGE HOME Condition: Stable Macho Palafox MD Apr 12, 2017 04:50
[2017-04-12] MEDS: RESP: ALBUTEROL 2.5 MG/IPRATROPIUM 0.5 MG NEB (SCH) INH ×2 (04:52→05:03)
[2017-04-12] MEDS ORDERED: POTASSIUM CHLORIDE 10 MEQ CONTROLLED RELEASE TAB PO ONE (05:30)
[2017-04-12] MEDS ORDERED: NS + KCL 40 MEQ INJ 1,000 ML IV SCH (05:30)
[2017-04-12] MEDS ORDERED: THIAMINE INJ 100 MG in SODIUM CHLORIDE 0.9% INJ 100 ML IV ONE (05:30)
[2017-04-12 06:40] VITALS: BP 129/77
[2017-04-12 07:00] LABS: CHLORIDE 103 MEQ/L (98-107); SODIUM (NA) 135 MEQ/L (136-145)
[2017-04-12 07:02] LABS: AUTOMATED NEUTROPHIL # 1.5 TH/MM3 (1.8-7.7); BASOPHIL # 0.1 TH/MM3 (0-0.2); BASOPHIL % 1.2 % (0.0-2.0); EOSINOPHIL # 0.1 TH/MM3 (0-0.4); EOSINOPHIL % 1.8 % (0.0-4.0); HEMATOCRIT 45.1 % (39.0-51.0); HEMOGLOBIN 14.9 GM/DL (13.0-17.0); LYMPHOCYTE # 2.9 TH/MM3 (1.0-4.8); MEAN CELL VOLUME 96.3 FL (80.0-100.0); MEAN CORPUSCULAR HEMOGLOBIN 31.8 PG (27.0-34.0); MEAN PLATELET VOLUME 8.1 FL (7.0-11.0); MONO % 11.8 % (0.0-8.0); MONOCYTE # 0.6 TH/MM3 (0-0.9); NEUT % 29.2 % (16.0-70.0); PLATELET COUNT 139 TH/MM3 (150-450); RED BLOOD COUNT 4.69 MIL/MM3 (4.50-5.90); RED CELL DISTRIBUTION WIDTH 13.6 % (11.6-17.2); WHITE BLOOD COUNT 5.2 TH/MM3 (4.0-11.0)
[2017-04-12 07:03] LABS: ALBUMIN 3.8 GM/DL (3.4-5.0); BICARBONATE 21.5 MEQ/L (21.0-32.0); BLOOD UREA NITROGEN 6 MG/DL (7-18); CALCIUM 8.3 MG/DL (8.5-10.1); GLUCOSE,RANDOM 85 MG/DL (74-106)
[2017-04-12 07:06] LABS: ALT (GPT) 71 U/L (12-78); AST (GOT) 87 U/L (15-37); CREATININE 0.66 MG/DL (0.60-1.30); GLOMERULAR FILTRATION RATE 127 ML/MIN (>89)
[2017-04-12 07:08] LABS: TOTAL BILIRUBIN ADULT 0.4 MG/DL (0.2-1.0); TOTAL PROTEIN 7.4 GM/DL (6.4-8.2)
[2017-04-12 07:09] LABS: ALKALINE PHOSPHATASE 73 U/L (45-117)
== END 2017-04-12 06:43 | disposition home or self-care (01) ==
LOC: PHED 04:36
DX: J44.1 Chronic obstructive pulmonary disease with (acute) exacerbation (principal); F10.229 Alcohol dependence with intoxication, unspecified; Y90.8 Blood alcohol level of 240 mg/100 ml or more; F17.210 Nicotine dependence, cigarettes, uncomplicated; I48.91 Unspecified atrial fibrillation; I10 Essential (primary) hypertension; B19.20 Unspecified viral hepatitis C without hepatic coma; F32.9 Major depressive disorder, single episode, unspecified; Z85.118 Personal history of other malignant neoplasm of bronchus and lung; Z79.899 Other long term (current) drug therapy
CPT/HCPCS: 80053; 80307; 85025; 87804; 94640; 94664; 96365; 96368; 96375; 99284; J2930; J3411; J3480

== ENCOUNTER 2017-04-16 22:54 | Emergency (ER) | payer OTHER ==
[~2017-04-16] VITALS: Ht 182.9 cm; Wt 76.0 kg
[2017-04-16 23:05] VITALS: BP 138/88; PULSE 96; RESP 18; TEMP 98.8; O2SAT 97
[2017-04-17 00:34] VITALS: BP 136/86; PULSE 92; RESP 18; O2SAT 97
[2017-04-17] MEDS: RESP: ALBUTEROL 2.5 MG/IPRATROPIUM 0.5 MG NEB (SCH) INH (00:34)
--- NOTE | 2017-04-17 01:06 | PD ---
HPI Chief Complaint: Cold / Flu Symptoms Time Seen by Provider: 00:23 Travel History International Travel<30 days: No Contact w/Intl Traveler<30days: No Traveled to known affect area: No History of Present Illness HPI The patient is a 51-year-old male well-known to this emergency department for his frequent visits regarding COPD and alcohol abuse. He still smokes one half pack a day. He complains of 2 days of coughing and some wheezing. He states he ran out of his albuterol puffer at home. He denies any fever. He is currently on prednisone. PFSH Past Medical History Hx Anticoagulant Therapy: No Arthritis: No Asthma: Yes Atrial Fibrillation: Yes Blood Disorders: No Anxiety: Yes Depression: Yes Heart Rhythm Problems: Yes (irregular rhythm ) Cancer: Yes (STAGE IV LUNG CA) Cardiac Catheterization: No Cardiovascular Problems: Yes (HTN) High Cholesterol: No Chemotherapy: No Chest Pain: Yes Congestive Heart Failure: No COPD: Yes Diabetes: No Diminished Hearing: No Endocrine: No Gastrointestinal Disorders: Yes (GERD) GERD: Yes Genitourinary: No Hepatitis: Yes (HEP C) Hiatal Hernia: No Hypertension: Yes Immune Disorder: No Implanted Vascular Access Dvce: Yes Medical other: No Musculoskeletal: Yes Neurologic: No Psychiatric: Yes Reproductive: No Respiratory: Yes Immunizations Current: Yes Pneumonia: Yes Radiation Therapy: No Seizures: Yes (ETOH WITHDRAWAL) Sleep Apnea: No Thyroid Disease: No Ulcer: Yes Tetanus Vaccination: < 5 Years Influenza Vaccination: Yes Past Surgical History Abdominal Surgery: No AICD: No Arteriovenous Shunt: No Body Medical Devices: SCREW IN LEFT WRIST Cardiac Surgery: No Ear Surgery: No Endocrine Surgery: No Eye Surgery: No Genitourinary Surgery: No Gynecologic Surgery: No Insulin Pump: No Joint Replacement: No Neurologic Surgery: No Oral Surgery: No Pacemaker: No Thoracic Surgery: Yes (BIOPSIES OF LT LUNG) Tonsillectomy: Yes Other Surgery: Yes Social History Alcohol Use: Yes (Daily, (3) 4 pack of 16oz beer ) Tobacco Use: Yes (1/2 pack per day) Substance Use: No Allergies-Medications (Allergen,Severity, Reaction): Coded Allergies: ipratropium (Verified Allergy, Severe, 04/16/17) lisinopril (Verified Allergy, Severe, Anaphylaxis, 04/16/17) penicillin G (Verified Adverse Reaction, Severe, WEAKNESS, "KNOCKS ME OUT ", 04/16/17) Reported Meds & Prescriptions Reported Meds & Active Scripts Active Ketorolac (Ketorolac Tromethamine) 10 Mg Tab 10 Mg PO TID Chlordiazepoxide HCl 25 Mg Capsule 25 Mg PO Q6HR Reported Ventolin Hfa 18 GM Inh (Albuterol Sulfate) 90 Mcg/Act Aer 2 Puff INH Q4-6H PRN Albuterol Neb (Albuterol Sulfate) 2.5 Mg/3 Ml Neb 2.5 Mg NEB QID NEB Review of Systems Except as stated in HPI: all other systems reviewed are Neg Physical Exam Narrative GENERAL: The patient is alert, oriented 3, smells of beer, and minimal respiratory distress. He does have a persistent cough. His vital signs show heart rate of 96 but are otherwise normal. Oximetry is 9 7% on room air. SKIN: Focused skin assessment warm/dry. HEAD: Atraumatic. Normocephalic. EYES: Pupils equal and round. No scleral icterus. No injection or drainage. ENT: No nasal bleeding or discharge. Mucous membranes pink and moist. NECK: Trachea midline. No JVD. CARDIOVASCULAR: Regular rate and rhythm. No murmur appreciated. RESPIRATORY: No accessory muscle use. A few scattered wheezes are heard in all lung joseph.. Breath sounds equal bilaterally. GASTROINTESTINAL: Abdomen soft, non-tender, nondistended. Hepatic and splenic margins not palpable. MUSCULOSKELETAL: No obvious deformities. No clubbing. No cyanosis. No edema. NEUROLOGICAL: Awake and alert. No obvious cranial nerve deficits. Motor grossly within normal limits. Normal speech. PSYCHIATRIC: Appropriate mood and affect; insight and judgment normal. Data Data Last Documented VS Vital Signs Date Time Temp Pulse Resp B/P (MAP) Pulse Ox O2 Delivery O2 Flow Rate FiO2 04/17/17 00:34 92 18 136/86 (103) 97 Room Air 04/16/17 23:05 98.8 Orders Orders Influenzae A/B Antigen (04/16/17 23:39) Group A Rapid Strep Screen (04/16/17 23:39) Strep Culture (Group A) (04/16/17 23:45) Albuterol-Ipratropium Neb (Duoneb Neb) (04/17/17 00:30) Chest, Pa & Lat (04/17/17 01:06) MDM Medical Decision Making Medical Screen Exam Complete: Yes Emergency Medical Condition: Yes Medical Record Reviewed: Yes Interpretation(s) The influenza A/B is negative for flu a and flu B antigen. The strep screen is negative for group A strep antigen. The PA and lateral chest x-ray shows no acute findings. Chronic, stable changes in the upper left lung with pleural thickening are noted. Differential Diagnosis Bronchitis, pneumonia, tobacco abuse, alcohol abuse, bronchospasm Narrative Course The patient has bronchitis with bronchospasm. He got good relief with the DuoNeb treatments. Diagnosis Primary Impression: Bronchitis with bronchospasm Additional Impression: Alcohol dependence Additional Instructions: As we mentioned many times before discontinuing alcohol and cigarettes. Follow- up with primary care physician next week. He will also get an albuterol puffer. Med/Other Pt SpecificInfo: Prescription(s) given Scripts Albuterol 8.5 GM Inh (Proair Hfa 8.5 GM Inh) 90 Mcg/Act Aer 2 PUFF INH Q4-6H Y for SHORTNESS OF BREATH, #1 INHALER 0 Refills 108 mcg/actuation Prov: Macho Palafox MD 04/17/17 Disposition: 01 DISCHARGE HOME Condition: Stable Macho Palafox MD Apr 17, 2017 01:06
--- NOTE | 2017-04-17 01:53 | RADRPT ---
EXAM DATE/TIME: 04/17/2017 01:14 [facility] COMPARISON: CHEST PA & LAT, September 01, 2015, 21:59. INDICATIONS : Cough. MEDICAL HISTORY : Hepatitis C. Gastroesophageal reflux disease. Chronic obstructive pulmonary disease. Hypertensi on, Carcinoma, lung. Asthma SURGICAL HISTORY : None. ENCOUNTER: Initial ACUITY: 1 month PAIN SCORE: 2/10 LOCATION: Bilateral chest FINDINGS: Comparison is August 2015. No new consolidation. Again seen is a tubular opacity in the upper left lung which is stable since 2016 and probably represents chronic mucoid plugging within an area of bronchi ectasis. There is stable chronic left apical pleural thickening. No effusion. Heart size normal. CONCLUSION: 1. No acute findings. Chronic changes upper left lung as above with pleural thickening. Garret Juan MD on April 17, 2017 at 1:49 Board Certified Radiologist. This report was verified electronically.
[2017-04-17] MEDS ORDERED: ALBUAER3 INH (02:07)
[2017-04-17 06:05] VITALS: BP 130/78; PULSE 84; RESP 18; O2SAT 97
== END 2017-04-17 06:08 | disposition home or self-care (01) ==
LOC: PHED 22:54
DX: J20.9 Acute bronchitis, unspecified (principal); J44.0 Chronic obstructive pulmonary disease with (acute) lower respiratory infection; F17.210 Nicotine dependence, cigarettes, uncomplicated; F10.20 Alcohol dependence, uncomplicated; J44.9 Chronic obstructive pulmonary disease, unspecified; I48.91 Unspecified atrial fibrillation; F32.9 Major depressive disorder, single episode, unspecified; I10 Essential (primary) hypertension; B19.20 Unspecified viral hepatitis C without hepatic coma
CPT/HCPCS: 71046; 87081; 87804; 87880; 94640; 94664; 99284

== ENCOUNTER 2017-07-18 21:49 | Emergency (ER) | payer OTHER ==
[~2017-07-18] VITALS: Ht 182.9 cm; Wt 76.2 kg
[~2017-07-18 21:49] MED LIST changes: +ALBUAER3 INH
[2017-07-18 21:58] VITALS: BP 133/88; PULSE 112; RESP 18; TEMP 98.8; O2SAT 98
--- NOTE | 2017-07-18 22:15 | PD ---
HPI Chief Complaint: Fall Time Seen by Provider: 22:12 Travel History International Travel<30 days: No Contact w/Intl Traveler<30days: No Traveled to known affect area: No History of Present Illness HPI 51-year-old male patient presents to the ER today, had tripped on the fence and fell onto a cinderblock hitting his left chest wall. He states that he has been having left chest wall pain since then it hurts to move or breathe. He denies any fevers or any other issues or injuries. He denies any head injury or loss of consciousness. Modifying Factors: None Associated Signs & Symptoms: Fall, left chest wall injury Risk Factors: None PFSH Past Medical History Hx Anticoagulant Therapy: No Arthritis: No Asthma: Yes Atrial Fibrillation: Yes Blood Disorders: No Anxiety: Yes Depression: Yes Heart Rhythm Problems: Yes (irregular rhythm ) Cancer: Yes (STAGE IV LUNG CA) Cardiac Catheterization: No Cardiovascular Problems: Yes (HTN) High Cholesterol: No Chemotherapy: No Chest Pain: Yes Congestive Heart Failure: No COPD: Yes Diabetes: No Diminished Hearing: No Endocrine: No Gastrointestinal Disorders: Yes (GERD) GERD: Yes Genitourinary: No Hepatitis: Yes (HEP C) Hiatal Hernia: No Hypertension: Yes Immune Disorder: No Implanted Vascular Access Dvce: Yes Medical other: No Musculoskeletal: Yes Neurologic: No Psychiatric: Yes Reproductive: No Respiratory: Yes Immunizations Current: Yes Pneumonia: Yes Radiation Therapy: No Seizures: Yes (ETOH WITHDRAWAL) Sleep Apnea: No Thyroid Disease: No Ulcer: Yes Tetanus Vaccination: > 5 Years Influenza Vaccination: No Past Surgical History Abdominal Surgery: No AICD: No Arteriovenous Shunt: No Body Medical Devices: SCREW IN LEFT WRIST Cardiac Surgery: No Ear Surgery: No Endocrine Surgery: No Eye Surgery: No Genitourinary Surgery: No Gynecologic Surgery: No Insulin Pump: No Joint Replacement: No Neurologic Surgery: No Oral Surgery: No Pacemaker: No Thoracic Surgery: Yes (BIOPSIES OF LT LUNG) Tonsillectomy: Yes Other Surgery: Yes Social History Alcohol Use: Yes (Daily, (3) 4 pack of 16oz beer ) Tobacco Use: Yes (1/2 pack per day) Substance Use: No Allergies-Medications (Allergen,Severity, Reaction): Coded Allergies: ipratropium (Verified Allergy, Severe, 07/18/17) lisinopril (Verified Allergy, Severe, Anaphylaxis, 07/18/17) penicillin G (Verified Adverse Reaction, Severe, WEAKNESS, "KNOCKS ME OUT ", 07/18/17) Reported Meds & Prescriptions Reported Meds & Active Scripts Active Proair Hfa 8.5 GM Inh (Albuterol Sulfate) 90 Mcg/Act Aer 2 Puff INH Q4-6H PRN 108 mcg/actuation Ketorolac (Ketorolac Tromethamine) 10 Mg Tab 10 Mg PO TID Chlordiazepoxide HCl 25 Mg Capsule 25 Mg PO Q6HR Reported Ventolin Hfa 18 GM Inh (Albuterol Sulfate) 90 Mcg/Act Aer 2 Puff INH Q4-6H PRN Albuterol Neb (Albuterol Sulfate) 2.5 Mg/3 Ml Neb 2.5 Mg NEB QID NEB Review of Systems Except as stated in HPI: all other systems reviewed are Neg Physical Exam Narrative GENERAL: Well-developed middle-age male patient currently in mild distress. Awake and oriented 3. Alcohol on breath. SKIN: Focused skin assessment warm/dry. HEAD: Atraumatic. Normocephalic. EYES: Pupils equal and round. No scleral icterus. No injection or drainage. ENT: No nasal bleeding or discharge. Mucous membranes pink and moist. NECK: Trachea midline. No JVD. Supple. CARDIOVASCULAR: Regular rate and rhythm. No murmur appreciated. CHEST: Left lateral chest wall tenderness without deformity or crepitance. No retractions or use of accessory muscles. RESPIRATORY: No accessory muscle use. Clear to auscultation. Breath sounds equal bilaterally. GASTROINTESTINAL: Abdomen soft, non-tender, nondistended. Hepatic and splenic margins not palpable. MUSCULOSKELETAL: No obvious deformities. No clubbing. No cyanosis. No edema. NEUROLOGICAL: Awake and alert. No obvious cranial nerve deficits. Motor grossly within normal limits. Normal speech. PSYCHIATRIC: Appropriate mood and affect; insight and judgment normal. Data Data Last Documented VS Vital Signs Date Time Temp Pulse Resp B/P (MAP) Pulse Ox O2 Delivery O2 Flow Rate FiO2 07/18/17 21:58 98.8 112 18 133/88 (103) 98 Orders Orders Ribs, Uni (W/Exp Cxr-Min 3vw) (07/18/17 22:12) [facility] Medical Decision Making Medical Screen Exam Complete: Yes Emergency Medical Condition: Yes Medical Record Reviewed: Yes Differential Diagnosis Rib contusion versus rib fractures versus pulmonary contusion Narrative Course Chest x-ray did not show any signs of acute injuries. At this point, plan would be to release him with symptomatic relief for pain. Return for any worsening in pain or new symptoms as needed. The plan has been discussed with him he states understanding. Diagnosis Primary Impression: Chest wall contusion Med/Other Pt SpecificInfo: Prescription(s) given Scripts Ibuprofen (Ibuprofen) 600 Mg Tab 600 MG PO Q6H Y for Pain/Inflammation, #40 TAB 0 Refills Prov: Ethel Raymond MD 07/19/17 Disposition: 01 DISCHARGE HOME Condition: Stable Ethel Raymond MD July 18, 2017 22:15
--- NOTE | 2017-07-18 23:57 | RADRPT ---
EXAM DATE/TIME: 07/18/2017 23:10 [facility] COMPARISON: CHEST PA & LAT, September 01, 2015, 21:59. INDICATIONS : Left upper chest pain after falling onto a cinder block. MEDICAL HISTORY : Chronic obstructive pulmonary disease. Carcinoma, lung. Hypertension. Asthma. SURGICAL HISTORY : None. ENCOUNTER: Initial ACUITY: 1 day PAIN SCORE: 8/10 LOCATION: Left upper chest FINDINGS: Multiple views of the left ribs were performed. There is no evidence of displaced fracture. No dest ructive lesions or areas of periosteal thickening are seen. Expiratory view of the chest is negative for pneumothorax. The mediastinal structures are midline. CONCLUSION: 1. No acute findings. Stable tubular opacity in upper left chest, probably mucoid plugging within an area of bronchiectasis. Comparison is 2016. Garret Juan MD on July 18, 2017 at 23:51 Board Certified Radiologist. This report was verified electronically.
[2017-07-19] MEDS ORDERED: IBUP-232 PO
== END 2017-07-19 00:08 | disposition home or self-care (01) ==
LOC: PHEFT 21:49
DX: S20.219A Contusion of unspecified front wall of thorax, initial encounter (principal); W01.198A Fall on same level from slipping, tripping and stumbling with subsequent striking against other object, initial encounter; I48.91 Unspecified atrial fibrillation; F41.9 Anxiety disorder, unspecified; I10 Essential (primary) hypertension; F32.9 Major depressive disorder, single episode, unspecified; J44.9 Chronic obstructive pulmonary disease, unspecified; B19.20 Unspecified viral hepatitis C without hepatic coma; F17.200 Nicotine dependence, unspecified, uncomplicated
CPT/HCPCS: 71101; 99283